=== PATIENT | male | born 1935 | race Caucasian/White ===

== ENCOUNTER → 2016-09-22 | Outpatient (CLI) | payer MEDICARE ==
[~2016-09-22] MED LIST: CELE40TA PO; FLOM5CAP PO; LISI40TAB PO; PROA1AER INH; SING10TA32 PO; TYLE325T5 PO; VITA100037 PO; VITA500T3 PO
[2016-09-22 09:25] LABS: MEAN CORPUSCULAR HEMOGLOBIN 28.5 pg (27.0-33.0); MEAN CORPUSCULAR HGB CONC 33.9 g/dl (32.0-36.5); MEAN CORPUSCULAR VOLUME 83.9 fl (80.0-96.0); RETIC HEMOGLOBIN CONTENT CHr 30.8 PG (24-36); RETICULOCYTE % ADVIA2120 1.8 % (0.5-1.5)
[2016-09-22 09:37] LABS: ALBUMIN 3.4 GM/DL (3.2-5.2); ALBUMIN/GLOBULIN RATIO 1.42 (1.00-1.93); ALKALINE PHOSPHATASE 87 U/L (45-117); ALT/SGPT 17 U/L (12-78); ANION GAP 4 MEQ/L (8-16); AST/SGOT 12 U/L (15-37); BILIRUBIN,TOTAL 0.4 MG/DL (0.2-1.0); BLOOD UREA NITROGEN 23 MG/DL (7-18); CALCIUM LEVEL 8.7 MG/DL (8.8-10.2); CARBON DIOXIDE LEVEL 29 MEQ/L (21-32); CHLORIDE LEVEL 107 MEQ/L (98-107); CREATININE FOR GFR 0.98 MG/DL (0.70-1.30); FERRITIN 48 NG/ML (26-388); GLOMERULAR FILTRATION RATE > 60.0 (>42); GLUCOSE, FASTING 87 MG/DL (83-110); PERCENT SATURATION 18.9 % (19.7-37.4); POTASSIUM SERUM 4.3 MEQ/L (3.5-5.1); SODIUM LEVEL 140 MEQ/L (136-145); TOTAL IRON BINDING CAPACITY 259 UG/DL (250-450); TOTAL PROTEIN 5.8 GM/DL (6.4-8.2)
== END ==
LOC: M LAB 08:23
PROVIDERS: ATTEND Nurse Practitioner Family
DX: D64.9 Anemia, unspecified (principal); I10 Essential (primary) hypertension

== ENCOUNTER → 2016-10-21 | Outpatient (CLI) | payer MEDICARE ==
[~2016-10-21] MED LIST changes: -PROA1AER INH; +PROAAER10 INH; -VITA100037 PO; +VITA100067 PO
--- NOTE | 2016-10-21 14:47 | REP ---
LEFT SHOULDER: Three views of the left shoulder are performed. There is no acute fracture or dislocation. There is mild narrowing at the glenohumeral joint. There is moderate narrowing and mild spurring at the acromioclavicular joint. IMPRESSION: Degenerative changes. Further evaluation may be made with MRI if clinically indicated. Signed by Nghia Glynn MD 10/21/2016 05:25 P
== END ==
LOC: M RAD 13:11
PROVIDERS: ATTEND Family Medicine
DX: M19.012 Primary osteoarthritis, left shoulder (principal)

== ENCOUNTER 2017-03-07 15:31 | Emergency (ER) | payer MEDICARE ==
[~2017-03-07] VITALS: Ht 172.7 cm; Wt 81.8 kg
[2017-03-07] MEDS ORDERED: LISI-538 PO ×2 (15:42→19:13)
[2017-03-07] MEDS ORDERED: IPRATROPIUM 0.5MG/ALBUTEROL 2.5MG INH SOL UD 3ML (DUONEB)(J7620) NEB ONE (16:15)
[2017-03-07 16:49] LABS: BASO # 0.1 10^3/uL (0.0-0.2); BASO % 0.7 % (0.0-1.0); EOS # 0.2 10^3/uL (0.0-0.50); EOS % 2.7 % (0.0-3.0); IMMATURE GRANULOCYTE % 0.4 % (0-0); LYMPH # 1.4 10^3/uL (1.5-4.5); LYMPH % 20.1 % (24.0-44.0); MEAN CORPUSCULAR HGB CONC 32.8 g/dl (32.0-36.5); MEAN CORPUSCULAR VOLUME 82.5 fl (80.0-96.0); MONO # 0.5 10^3/uL (0.0-0.8); MONO % 7.2 % (0.0-5.0); NEUTROPHILS # 4.9 10^3/uL (1.8-7.7); NEUTROPHILS % 68.9 % (36.0-66.0); PLATELET COUNT, AUTOMATED 285 10^3/uL (150-450); RED CELL DISTRIBUTION WIDTH 14.3 % (11.5-14.5); WHITE BLOOD COUNT 7.1 10^3/uL (4.0-10.0)
--- NOTE | 2017-03-07 16:56 | REP ---
Chest two views HISTORY: Cough Comparison: 01/31/2016 A minimal increase in interstitial markings is present in the lungs consistent with chronic interstitial fibrosis. Patchy density is present in the left lower lobe consistent with atelectasis or infiltrate. Small bilateral pleural effusions are present. The heart is upper limits of normal in size. The pulmonary vasculature is normal in appearance. The bony structure is intact. Impression: 1. Chronic interstitial fibrosis. 2. Left lower lobe atelectasis or infiltrate. 3. Small bilateral pleural effusions. Signed by Ehsan Poe MD 03/07/2017 04:47 P
[2017-03-07 17:06] LABS: ALBUMIN/GLOBULIN RATIO 1.36 (1.00-1.93); ALKALINE PHOSPHATASE 71 U/L (45-117); ALT/SGPT 15 U/L (12-78); ANION GAP 9 MEQ/L (8-16); AST/SGOT 11 U/L (7-37); BILIRUBIN,DIRECT < 0.1 MG/DL (0.0-0.2); BILIRUBIN,TOTAL 0.2 MG/DL (0.2-1.0); BLOOD UREA NITROGEN 37 MG/DL (7-18); CALCIUM LEVEL 8.1 MG/DL (8.8-10.2); CARBON DIOXIDE LEVEL 25 MEQ/L (21-32); CHLORIDE LEVEL 109 MEQ/L (98-107); CREATININE FOR GFR 1.74 MG/DL (0.70-1.30); GLOMERULAR FILTRATION RATE 40.5 (>42); GLUCOSE, FASTING 85 MG/DL (83-110); POTASSIUM SERUM 4.3 MEQ/L (3.5-5.1); SODIUM LEVEL 143 MEQ/L (136-145); TOTAL PROTEIN 5.2 GM/DL (6.4-8.2)
[2017-03-07] MEDS ORDERED: NITROGLYCERIN 0.3 MG SUBL TAB SL STA (17:39)
[2017-03-07] MEDS ORDERED: FUROSEMIDE 40 MG/4 ML VIAL (J1940) IV ONE (17:45)
[2017-03-07 17:51] VITALS: BP 207/94
[2017-03-07] MEDS ORDERED: NORV5TAB PO (19:13)
[2017-03-07 19:22] VITALS: BP 188/87
[2017-03-07] MEDS ORDERED: ZITHTAB PO (19:30)
--- NOTE | 2017-03-08 12:27 | ECGEPIP ---
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
== END 2017-03-07 19:35 | disposition home or self-care (01) ==
LOC: M ED 15:31
DX: R06.02 Shortness of breath (principal); I10 Essential (primary) hypertension; N17.9 Acute kidney failure, unspecified; J45.909 Unspecified asthma, uncomplicated; D64.9 Anemia, unspecified; F41.9 Anxiety disorder, unspecified; F33.9 Major depressive disorder, recurrent, unspecified; K58.9 Irritable bowel syndrome, unspecified; Z87.891 Personal history of nicotine dependence

== ENCOUNTER 2017-03-10 08:41 | Inpatient (IN) | payer MEDICARE ==
[~2017-03-10] VITALS: Ht 172.7 cm; Wt 73.8 kg
[~2017-03-10 08:41] MED LIST changes: +LISI-538 PO; +NORV5TAB PO; +ZITHTAB PO
[2017-03-10] MEDS ORDERED: LISI-538 (08:58)
[2017-03-10 10:12] LABS: BASO % 0.5 % (0.0-1.0); EOS # 0.3 10^3/uL (0.0-0.50); EOS % 3.4 % (0.0-3.0); IMMATURE GRANULOCYTE % 0.6 % (0-0); LYMPH # 1.5 10^3/uL (1.5-4.5); LYMPH % 17.4 % (24.0-44.0); MEAN CORPUSCULAR HEMOGLOBIN 26.6 pg (27.0-33.0); MEAN CORPUSCULAR HGB CONC 32.3 g/dl (32.0-36.5); MEAN CORPUSCULAR VOLUME 82.4 fl (80.0-96.0); MONO # 0.4 10^3/uL (0.0-0.8); MONO % 4.9 % (0.0-5.0); NEUTROPHILS # 6.3 10^3/uL (1.8-7.7); NEUTROPHILS % 73.2 % (36.0-66.0); PLATELET COUNT, AUTOMATED 326 10^3/uL (150-450); RED CELL DISTRIBUTION WIDTH 14.2 % (11.5-14.5); WHITE BLOOD COUNT 8.5 10^3/uL (4.0-10.0)
[2017-03-10 10:57] LABS: ALBUMIN 3.1 GM/DL (3.2-5.2); ALBUMIN/GLOBULIN RATIO 1.41 (1.00-1.93); ALKALINE PHOSPHATASE 69 U/L (45-117); ALT/SGPT 18 U/L (12-78); ANION GAP 8 MEQ/L (8-16); AST/SGOT 20 U/L (7-37); BILIRUBIN,DIRECT < 0.1 MG/DL (0.0-0.2); BILIRUBIN,TOTAL 0.4 MG/DL (0.2-1.0); BLOOD UREA NITROGEN 26 MG/DL (7-18); CALCIUM LEVEL 8.4 MG/DL (8.8-10.2); CARBON DIOXIDE LEVEL 26 MEQ/L (21-32); CHLORIDE LEVEL 108 MEQ/L (98-107); CREATININE FOR GFR 1.66 MG/DL (0.70-1.30); GLOMERULAR FILTRATION RATE 42.8 (>42); GLUCOSE, FASTING 89 MG/DL (83-110); POTASSIUM SERUM 4.2 MEQ/L (3.5-5.1); SODIUM LEVEL 142 MEQ/L (136-145); TOTAL PROTEIN 5.3 GM/DL (6.4-8.2)
--- NOTE | 2017-03-10 11:10 | REP ---
CHEST, PORTABLE: Single AP portable view of the chest is performed and compared to a prior study of 03/07/2017. There is mild cardiomegaly. There are mild bibasilar interstitial infiltrates. No consolidation is seen. There is mild ectasia and tortuosity of the thoracic aorta. The mediastinal silhouette is unchanged. IMPRESSION: Mild cardiomegaly. Mild bibasilar interstitial infiltrates. Signed by Nghia Glynn MD 03/12/2017 08:54 A
[2017-03-10] MEDS ORDERED: FUROSEMIDE 40 MG/4 ML VIAL (J1940) IV ONE (11:15)
[2017-03-10 11:21] LABS: PERCENT SATURATION 12.4 % (19.7-50.0)
[2017-03-10 11:29] LABS: FOLATE 11.1 NG/ML (>5.4)
[2017-03-10] MEDS ORDERED: METOPROLOL TART 50 MG TAB PO ONE (12:45)
[2017-03-10] MEDS ORDERED: AZIT250T8 PO (13:23)
[2017-03-10] MEDS ORDERED: AMLO5TAB2 PO (13:23)
[2017-03-10] MEDS ORDERED: ACETAMINOPHEN TAB 650MG DOSE (2X325MG) PO PRN (13:45)
--- NOTE | 2017-03-10 14:10 | HPE ---
DATE OF ADMISSION: 03/10/2017 The patient's history and physical is generated through [employer] electronic record.
[2017-03-10 14:24] LABS: MAGNESIUM LEVEL 1.9 MG/DL (1.8-2.4)
[2017-03-10 15:10] VITALS: BP 200/80
[2017-03-10] MEDS: CitaloPRAM (CeleXA) 20 MG TAB PO SCH (16:30)
[2017-03-10] MEDS: ENOXAPARIN 30 MG/0.3 ML SYR (J1650) SC SCH (16:30)
[2017-03-10] MEDS: METOPROLOL SUCC *XL* 25MG TAB (TopROL *XL*) PO SCH (16:30)
[2017-03-10] MEDS: FUROSEMIDE 40 MG/4 ML VIAL (J1940) IV SCH (18:36)
[2017-03-10 18:39] VITALS: BP 190/84
--- NOTE | 2017-03-10 19:25 | ECGEPIP ---
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
[2017-03-10 20:00] VITALS: BP 130/60
[2017-03-10] MEDS: CYANOCOBALAMIN 500 MCG TAB PO SCH (20:11)
[2017-03-10] MEDS: VITAMIN D 1,000 INTERNATIONAL UNITS TABLET PO SCH (20:11)
[2017-03-10] MEDS: MONTELUKAST 10 MG TAB PO SCH (20:11)
[2017-03-10] MEDS: NITROGLYCERIN 2% OINT 1 GM *U/D* PKT TOP SCH (21:00)
[2017-03-10] MEDS: amLODIPine 5 MG TAB PO SCH (21:13)
[2017-03-10 23:59] VITALS: BP 158/62
[2017-03-11] MEDS: FUROSEMIDE 40 MG/4 ML VIAL (J1940) IV SCH ×4 (01:07→18:25)
[2017-03-11] MEDS: NITROGLYCERIN 2% OINT 1 GM *U/D* PKT TOP SCH ×5 (03:15→21:32)
[2017-03-11 04:00] VITALS: BP 176/81
[2017-03-11 04:10] LABS: MEAN CORPUSCULAR HEMOGLOBIN 26.3 pg (27.0-33.0); MEAN CORPUSCULAR HGB CONC 32.3 g/dl (32.0-36.5); MEAN CORPUSCULAR VOLUME 81.6 fl (80.0-96.0); PLATELET COUNT, AUTOMATED 316 10^3/uL (150-450); RED CELL DISTRIBUTION WIDTH 14.3 % (11.5-14.5); WHITE BLOOD COUNT 8.2 10^3/uL (4.0-10.0)
[2017-03-11 04:29] LABS: CALCIUM LEVEL 8.2 MG/DL (8.8-10.2); CREATININE FOR GFR 1.81 MG/DL (0.70-1.30); GLOMERULAR FILTRATION RATE 38.7 (>42); MAGNESIUM LEVEL 1.8 MG/DL (1.8-2.4); POTASSIUM SERUM 3.7 MEQ/L (3.5-5.1)
[2017-03-11 08:00] VITALS: BP 181/79
--- NOTE | 2017-03-11 09:02 | IPNPDOC ---
Subjective Date Seen The patient was seen on 03/11/17. Subjective Chief Complaint/HPI The patient is a 81-year-old male admitted with a reason for visit of Congestive Heart. Events since last encounter Pt this morning without new concerns. He has a sitter d/t confusion. He denies any symptoms this morning, he isn't sure why he is here. ENT: Denies: Head Aches Pulmonary: Denies: Dyspnea, Cough Cardiovascular: Denies: Chest Pain, Palpitations Gastrointestinal: Denies: Nausea, Vomiting, Diarrhea Psych: Reports: Memory Issues Objective Physical Examination General Exam: Positive: Alert, Cooperative, No Acute Distress Neck Exam: Positive: Supple Chest Exam: Positive: Clear to auscultation, Diminished Heart Exam: Positive: Rate Normal, Normal S1, Normal S2 Abdomen Exam: Positive: Normal bowel sounds, Soft, Negative: Tenderness Extremity Exam: Positive: Edema (2 mm pitting BLE) Psych Exam: Positive: Mood NL Assessment /Plan Problems (1) Congestive heart failure with preserved left ventricular function, NYHA class 3 Status: Acute Response to Treatment: Stable Discussed With: Patient Problem Specific Plan: Monitor Clinically Problem Text: Admitted on IV Lasix 40 mg q6h. I & Os not accurate at this point, should see some improvement today. resp status stable today. AKASH diet. Cons Cardiac rehab consult. (2) Iron deficiency anemia Status: Chronic Problem Text: Baseline Hgb 12-13, he is down from 10 to 9 today, monitor closely (3) Dementia Status: Chronic Response to Treatment: Stable Problem Specific Plan: Monitor Clinically Problem Text: Unsure what his baseline is this morning, but he is clearly confused this morning. Cont to monitor. Cont with sitter. (4) Acute on chronic renal failure Status: Acute Response to Treatment: Stable Problem Specific Plan: Monitor Clinically, Repeat Labs Problem Text: Monitor, baseline Scr 1.0. May improve with diuresis. Plan/VTE VTE Prophylaxis Ordered?: Yes VS, I&O, 24H, Fishbone Vital Signs/I&O Vital Signs Date Time Temp Pulse Resp B/P (MAP) Pulse Ox O2 Delivery O2 Flow Rate FiO2 03/11/17 08:00 98.0 71 19 181/79 (113) 92 Room Air 03/10/17 20:00 2.0 I&O- Last 24 Hours up to 6 AM 03/12/17 06:00 Output Total 100 ml Balance -100 ml Laboratory Data 24H LABS Laboratory Tests 2 03/10/17 10:01: Magnesium Level 1.9, Iron Level 26L, Total Iron Binding Capacity 210L, Transferrin % Saturation 12.4L, Ferritin 42, Vitamin B12 Level 510, Folate 11.1 03/10/17 10:02: Immature Granulocyte % (Auto) 0.6H, White Blood Count 8.5, Red Blood Count 3.76L , Hemoglobin 10.0L, Hematocrit 31.0L, Mean Corpuscular Volume 82.4, Mean Corpuscular Hemoglobin 26.6L, Mean Corpuscular Hemoglobin Concent 32.3, Red Cell Distribution Width 14.2, Platelet Count 326, Neutrophils (%) (Auto) 73.2H, Lymphocytes (%) (Auto) 17.4L, Monocytes (%) (Auto) 4.9, Eosinophils (%) (Auto) 3.4H, Basophils (%) (Auto) 0.5, Neutrophils # (Auto) 6.3, Lymphocytes # (Auto) 1.5, Monocytes # (Auto) 0.4, Eosinophils # (Auto) 0.3, Basophils # (Auto) 0.0, Immature Granulocyte # (Auto) 0.1H, Nucleated Red Blood Cells % (auto) 0.0, Anion Gap 8, Glomerular Filtration Rate 42.8, Calcium Level 8.4L, Aspartate Amino Transf (AST/SGOT) 20, Alanine Aminotransferase (ALT/SGPT) 18, Alkaline Phosphatase 69, Total Bilirubin 0.4#, Direct Bilirubin < 0.1, Total Creatine Kinase 216, Creatine Kinase MB 3.8H, Creatine Kinase MB Relative Index 1.75, Troponin I 0.03, NX-Puv-[id number]-Type Natriuretic Peptide 3247H, Total Protein 5.3L, Albumin 3.1L, Albumin/Globulin Ratio 1.41, Thyroid Stimulating Hormone (TSH) 2.910 03/10/17 19:38: Total Creatine Kinase 242, Creatine Kinase MB 3.6, Creatine Kinase MB Relative Index 1.48, Troponin I 0.04# 03/11/17 03:31: Magnesium Level 1.8, Nucleated Red Blood Cells % (auto) 0.0, Anion Gap 11, Glomerular Filtration Rate 38.7L, Calcium Level 8.2L, Total Creatine Kinase 202 , Creatine Kinase MB 3.2, Creatine Kinase MB Relative Index 1.58, Troponin I 0.03#, Blood Urea Nitrogen 28H, Creatinine 1.81H, Sodium Level 143, Potassium Level 3.7, Chloride Level 107, Carbon Dioxide Level 25 CBC/BMP Laboratory Tests 03/10/17 10:02 Red Blood Count 3.76 L, Mean Corpuscular Volume 82.4, Mean Corpuscular Hemoglobin 26.6 L, Mean Corpuscular Hemoglobin Concent 32.3, Red Cell Distribution Width 14.2, Neutrophils (%) (Auto) 73.2 H, Lymphocytes (%) (Auto) 17.4 L, Monocytes (%) (Auto) 4.9, Eosinophils (%) (Auto) 3.4 H, Basophils (%) ( Auto) 0.5, Neutrophils # (Auto) 6.3, Lymphocytes # (Auto) 1.5, Monocytes # (Auto ) 0.4, Eosinophils # (Auto) 0.3, Basophils # (Auto) 0.0 03/11/17 03:31 Red Blood Count 3.42 L, Mean Corpuscular Volume 81.6, Mean Corpuscular Hemoglobin 26.3 L, Mean Corpuscular Hemoglobin Concent 32.3, Red Cell Distribution Width 14.3, Calcium Level 8.2 L, Total Creatine Kinase 202 ABHIJEET XIE PA-C Mar 11, 2017 09:02
[2017-03-11] MEDS: ENOXAPARIN 30 MG/0.3 ML SYR (J1650) SC SCH (09:37)
[2017-03-11] MEDS: CitaloPRAM (CeleXA) 20 MG TAB PO SCH (09:37)
[2017-03-11] MEDS: METOPROLOL SUCC *XL* 25MG TAB (TopROL *XL*) PO SCH (09:39)
[2017-03-11] MEDS: amLODIPine 5 MG TAB PO SCH ×3 (09:39→21:31)
[2017-03-11 12:00] VITALS: BP 172/79
[2017-03-11 20:00] VITALS: BP 177/81
[2017-03-11] MEDS: VITAMIN D 1,000 INTERNATIONAL UNITS TABLET PO SCH ×2 (21:00→21:31)
[2017-03-11] MEDS: CYANOCOBALAMIN 500 MCG TAB PO SCH ×2 (21:00→21:31)
[2017-03-11] MEDS: MONTELUKAST 10 MG TAB PO SCH ×2 (21:00→21:31)
[2017-03-11 23:59] VITALS: BP 170/72
[2017-03-12] MEDS: FUROSEMIDE 40 MG/4 ML VIAL (J1940) IV SCH ×2 (00:52→06:00)
[2017-03-12 04:00] VITALS: BP 178/72
[2017-03-12] MEDS: NITROGLYCERIN 2% OINT 1 GM *U/D* PKT TOP SCH ×4 (04:39→21:06)
[2017-03-12 06:04] LABS: MEAN CORPUSCULAR HEMOGLOBIN 26.1 pg (27.0-33.0); MEAN CORPUSCULAR HGB CONC 32.6 g/dl (32.0-36.5); MEAN CORPUSCULAR VOLUME 79.8 fl (80.0-96.0); PLATELET COUNT, AUTOMATED 304 10^3/uL (150-450); RED CELL DISTRIBUTION WIDTH 13.9 % (11.5-14.5); WHITE BLOOD COUNT 7.7 10^3/uL (4.0-10.0)
--- NOTE | 2017-03-12 06:12 | ECHO ---
DATE OF STUDY: 03/10/2017 REFERRING PHYSICIAN: Dr. Hector Conner INDICATION: Dyspnea. HEIGHT: 173 cm. WEIGHT: 80 kg. 2-D MEASUREMENTS: Aortic root: 3.7 cm Left atrium: 4.0 cm Left ventricle septum: 1.14 cm Posterior wall: 1.09 cm Left ventricle diastole: 5.8 cm LVOT: 2.5 cm DOPPLER MEASUREMENTS: Moderate aortic regurgitation Aortic valve velocity: 164 cm/sec LVOT velocity: 92.5 cm/sec LVOT VTI: 21.5 cm Moderate mitral regurgitation Mitral E velocity: 66.1 cm/sec Mitral A velocity: 83.9 cm/sec Mitral deceleration time: 222 ms Estimated right ventricular systolic pressure 31 mmHg assuming a right atrial pressure of 5 mmHg Pulmonary artery systolic pressure: 22 mmHg by pulmonary acceleration time method MITRAL ANNULAR TISSUE DOPPLER: E prime septal: 5.1 cm/sec E prime lateral: 6.4 cm/sec DESCRIPTION: The rhythm was sinus. This was a moderately technically difficult echocardiogram. This was a 2-D, M-mode, color flow Doppler and pulse wave Doppler examination and included mitral annular tissue Doppler. CONCLUSIONS: 1. Normal left ventricle regional wall motion and LV systolic function. LVEF 60% by visual estimate. Mildly dilated left ventricle at end diastole. Grade 1 LV diastolic dysfunction (impaired relaxation filling pattern). 2. Mild aortic valve sclerosis of a 3-cuspid aortic valve. Moderate aortic regurgitation. 3. Moderate mitral annular calcification. No mitral stenosis. Moderate mitral regurgitation. 4. Suggestive of normal estimated right ventricle systolic pressure and pulmonary artery systolic pressure. 5. Tiny pericardial effusion. RECOMMENDATIONS: Suggest a follow up echocardiogram Doppler in one year.
[2017-03-12 06:22] LABS: CALCIUM LEVEL 8.1 MG/DL (8.8-10.2); CREATININE FOR GFR 1.93 MG/DL (0.70-1.30); GLOMERULAR FILTRATION RATE 35.9 (>42); POTASSIUM SERUM 3.3 MEQ/L (3.5-5.1)
[2017-03-12 08:00] VITALS: BP 197/79
[2017-03-12] MEDS: ENOXAPARIN 30 MG/0.3 ML SYR (J1650) SC SCH (09:00)
--- NOTE | 2017-03-12 09:13 | IPNPDOC ---
Subjective Date Seen The patient was seen on 03/12/17. Subjective Chief Complaint/HPI The patient is a 81-year-old male admitted with a reason for visit of Congestive Heart. Objective Physical Examination General Exam: Positive: Alert, Cooperative, No Acute Distress Neck Exam: Positive: Supple Chest Exam: Positive: Clear to auscultation, Diminished Heart Exam: Positive: Rate Normal, Normal S1, Normal S2 Abdomen Exam: Positive: Normal bowel sounds, Soft, Negative: Tenderness Extremity Exam: Positive: Edema (2 mm pitting BLE) Psych Exam: Positive: Mood NL, Other (disoriented to time: may 1986. ), Negative: Oriented x 3 Assessment /Plan Problems (1) Congestive heart failure with preserved left ventricular function, NYHA class 3 Permanent Comment: echo 03/10/2017: CONCLUSIONS: 1. Normal left ventricle regional wall motion and LV systolic function. LVEF 60% by visual estimate. Mildly dilated left ventricle at end diastole. Grade 1 LV diastolic dysfunction (impaired relaxation filling pattern). 2. Mild aortic valve sclerosis of a 3-cuspid aortic valve. Moderate aortic regurgitation. 3. Moderate mitral annular calcification. No mitral stenosis. Moderate mitral regurgitation. 4. Suggestive of normal estimated right ventricle systolic pressure and pulmonary artery systolic pressure. 5. Tiny pericardial effusion. Last Edited By: Fanta Ravi NP on Mar 12, 2017 09:07 Status: Acute Response to Treatment: Stable Discussed With: Patient Problem Specific Plan: Monitor Clinically Problem Text: 03/13/17: Changed to Lasix 40 mg po bid. Monitor renal function with diuretic. potential for DC home in am. Admitted on IV Lasix 40 mg q6h. I & Os not accurate at this point, should see some improvement today. resp status stable today. AKASH diet. Cons Cardiac rehab consult. (2) Iron deficiency anemia Status: Chronic Problem Text: Baseline Hgb 12-13, he is down from 10 to 9 today, monitor closely (3) Dementia Status: Chronic Response to Treatment: Stable Problem Specific Plan: Monitor Clinically Problem Text: 03/12/17: alert to self and place. Unsure what his baseline is this morning, but he is clearly confused this morning. Cont to monitor. Cont with sitter. (4) Acute on chronic renal failure Status: Acute Response to Treatment: Stable Problem Specific Plan: Monitor Clinically, Repeat Labs Problem Text: Monitor, baseline Scr 1.0. May improve with diuresis. Plan/VTE VTE Prophylaxis Ordered?: Yes VS, I&O, 24H, Fishbone Vital Signs/I&O Vital Signs Date Time Temp Pulse Resp B/P (MAP) Pulse Ox O2 Delivery O2 Flow Rate FiO2 03/12/17 08:00 99.1 79 20 197/79 (118) 94 Room Air 03/10/17 20:00 2.0 I&O- Last 24 Hours up to 6 AM 03/13/17 06:00 Intake Total 0 ml Output Total 0 ml Balance 0 ml Laboratory Data 24H LABS Laboratory Tests 2 03/11/17 10:59: Total Creatine Kinase 237, Creatine Kinase MB 3.4, Creatine Kinase MB Relative Index 1.43, Troponin I 0.03 03/12/17 05:52: Nucleated Red Blood Cells % (auto) 0.0, Anion Gap 11, Glomerular Filtration Rate 35.9L, Blood Urea Nitrogen 33H, Creatinine 1.93H, Sodium Level 142, Potassium Level 3.3L, Chloride Level 101, Carbon Dioxide Level 30, Calcium Level 8.1L CBC/BMP Laboratory Tests 03/12/17 05:52 Red Blood Count 3.57 L, Mean Corpuscular Volume 79.8 L, Mean Corpuscular Hemoglobin 26.1 L, Mean Corpuscular Hemoglobin Concent 32.6, Red Cell Distribution Width 13.9, Calcium Level 8.1 L Fanta Ravi [employer] DECORATOR Mar 12, 2017 09:13
[2017-03-12] MEDS: METOPROLOL SUCC *XL* 25MG TAB (TopROL *XL*) PO SCH (09:33)
[2017-03-12] MEDS: amLODIPine 5 MG TAB PO SCH ×2 (09:33→21:06)
[2017-03-12] MEDS: CitaloPRAM (CeleXA) 20 MG TAB PO SCH (09:34)
[2017-03-12] MEDS ORDERED: POTASSIUM CHLORIDE 10 MEQ SR TABLET PO ONE (10:00)
[2017-03-12 11:01] LABS: YEAST LIKE CELL URINE AUTO SMALL
[2017-03-12 12:00] VITALS: BP 150/69
--- NOTE | 2017-03-12 15:56 | REP ---
CT of the abdomen pelvis without IV or bowel contrast: There are no comparisons. There is a small right pleural effusion within the visualized lung nolasco. The unenhanced hepatic parenchyma, gallbladder, pancreas and spleen are unremarkable. There is a small hiatal hernia. There is a small pericardial effusion measuring 1 cm in depth anteriorly. The adrenals are unremarkable. There is no hydronephrosis. There are no renal, ureteral or bladder calculi. The prostate is enlarged and contains prostatic of this and effaces the bladder base. There is no bowel distension or obstruction. There is diverticulosis of the descending colon and sigmoid colon without diverticulitis. There are a few scattered diverticula in the ascending colon and transverse colon without diverticulitis. Pelvis: The appendix is unremarkable. The bladder is unremarkable except for effacement is based from the prostate. There is no adenopathy or ascites. There is multilevel degenerative disc disease in the lumbar spine. There is a mottled lucent lesion involving the anterior posterior elements of the L4 vertebral body. This could be an hemangioma, focal osteoporosis or neoplasm. There is focal hypodensity posteriorly in the left iliac wing, greater than that on the right, nonspecific, focal osteoporosis versus lytic lesion. There is a focal hypodensity anteriorly in the left iliac wing, bone island versus blastic lesion. Impression: Small right pleural effusion. Small hiatal hernia. Small pericardial effusion. The prostate is markedly enlarged and effaces the bladder base. There are prostatic of this. There are no renal or ureteral calculi. There is no hydronephrosis. There are skeletal lesions as described. These are nonspecific. Signed by Nghia Amezcua MD 03/12/2017 03:47 P
[2017-03-12 16:00] VITALS: BP 168/70
[2017-03-12] MEDS ORDERED: FUROSEMIDE 40 MG TAB PO SCH (17:00)
[2017-03-12 20:00] VITALS: BP_SYST 153; BP_SYST 182; BP_DIAS 69
[2017-03-12] MEDS: VITAMIN D 1,000 INTERNATIONAL UNITS TABLET PO SCH (21:06)
[2017-03-12] MEDS: CYANOCOBALAMIN 500 MCG TAB PO SCH (21:06)
[2017-03-12] MEDS: MONTELUKAST 10 MG TAB PO SCH (21:06)
[2017-03-12 23:59] VITALS: BP 162/71
[2017-03-13 04:45] VITALS: BP 157/74
[2017-03-13 05:00] VITALS: BP 157/74
[2017-03-13] MEDS: NITROGLYCERIN 2% OINT 1 GM *U/D* PKT TOP SCH (05:00)
[2017-03-13 06:06] LABS: MEAN CORPUSCULAR HEMOGLOBIN 26.5 pg (27.0-33.0); MEAN CORPUSCULAR HGB CONC 32.6 g/dl (32.0-36.5); MEAN CORPUSCULAR VOLUME 81.1 fl (80.0-96.0); PLATELET COUNT, AUTOMATED 336 10^3/uL (150-450); WHITE BLOOD COUNT 8.7 10^3/uL (4.0-10.0)
[2017-03-13 06:36] LABS: CALCIUM LEVEL 7.8 MG/DL (8.8-10.2); CREATININE FOR GFR 1.81 MG/DL (0.70-1.30); GLOMERULAR FILTRATION RATE 38.7 (>42); POTASSIUM SERUM 3.9 MEQ/L (3.5-5.1)
[2017-03-13] MEDS ORDERED: FINA5TAB2 PO (08:33)
[2017-03-13] MEDS ORDERED: FLOM5CAP PO (08:33)
[2017-03-13] MEDS ORDERED: METO1TAB32 PO (08:33)
[2017-03-13 08:50] VITALS: BP 139/63
--- NOTE | 2017-03-13 09:22 | DSES ---
DATE OF ADMISSION: 03/10/2017 DATE OF DISCHARGE: PRIMARY CARE PROVIDER: [facility] PRINCIPAL DIAGNOSIS: Exacerbation of congestive heart failure with preserved ejection fraction. SECONDARY DIAGNOSES: 1. Hematuria secondary to benign prostatic hypertrophy (BPH). 2. Chronic anemia secondary to chronic disease. 3. Chronic kidney disease stage III. 4. Dementia. 5. Question of lytic lesions L4 and left iliac wing on CT scan abdomen and pelvis. Outpatient followup planned. 6. Benign prostatic hypertrophy with urinary tract symptoms of a significant obstruction. HISTORY: Anthony Hammond is a 81-year-old patient of Joyce Decker admitted with CHF. Details in history and physical for admission. HOSPITAL COURSE: The patient was admitted to a progressive care unit (PCU) bed. He was diuresed and within a day or two was out of his congestive heart failure. He could have gone home yesterday, but he had developed gross hematuria. It was intermittent, and it has resolved. He strains to void and has nocturia times 5-6. Voids small amounts frequently during his hospitalization. Due to the hematuria, we did a urinalysis, which confirmed gross hematuria. Urine culture shows no growth today, and a CT scan abdomen and pelvis showed no abnormalities of the kidneys. He did have a mottled lucent lesion anterior elements of the L4 vertebral body and a focal hypodensity left iliac wing. Significant disease is unknown. (I have a call in for Dr. Amezcua, the radiologist, to call me back to see whether he would recommend followup bone scan versus plain film imaging. Both or either of these can be done as an outpatient, and I will dictate an addendum once I hear back from him.) He has significant obstructive urinary symptoms. This was evident in the emergency room, where despite diuretic he was only voiding a few hundred mL at a time but doing it about every 20 minutes. His says he has a slow stream and nocturia times 5-6. Will start medical therapy towards this with Flomax 0.4 mg at bedtime and finasteride 5 mg daily. He has dementia. He is on citalopram 40 mg daily. He did well with that. During his hospitalization, he had some confusion due to change of his location. Acute renal failure superimposed on chronic kidney disease. Some of this was from excessive diuresis. We did hold his lisinopril on admission. His blood pressure was treated with metoprolol succinate 25 mg daily and amlodipine 5 mg daily, which he is tolerating well. He had an echocardiogram done. It showed left atrial enlargement 40 mm, ejection fraction 60%, grade 1 diastolic dysfunction (appropriate for age), aortic regurgitation, moderate mitral regurgitation. Repeat echocardiogram recommended in a year. SIGNIFICANT LABORATORIES: Today, sodium was 143, potassium 3.9, BUN 34, creatinine 1.8, glucose 94. White count is 8.7, hemoglobin 9.4, platelets 336. Urinalysis shows too many red cells to count. Urine culture is pending. At this point, no growth. Chest x-ray showed increased interstitial markings. CT scan abdomen and pelvis is summarized above. DISPOSITION: The patient is discharged improved in stable condition. He will followup with Joyce Decker in 1 week. He will need followup imaging for the radiographic abnormalities described above, followup laboratory work for the chronic anemia and chronic kidney disease. [id number] diet. 1800 mL per day fluid restriction. MEDICATIONS ON DISCHARGE: Are: - amlodipine 5 mg daily - citalopram 40 mg daily - vitamin B12 500 mcg daily - Singulair 10 mg daily - albuterol two puffs every 4 hours as needed for shortness of breath - vitamin D 1000 units daily - metoprolol succinate 25 mg daily HE IS NOT BEING DISCHARGED ON ANY DIURETIC. He is euvolemic at this point but might need reinstitution of a low-dose diuretic as an outpatient. We are initiating treatment for his symptomatic BPH with Flomax 0.4 mg daily and finasteride 5 mg daily.
[2017-03-13] MEDS: CitaloPRAM (CeleXA) 20 MG TAB PO SCH (10:24)
[2017-03-13] MEDS: amLODIPine 5 MG TAB PO SCH (10:24)
[2017-03-13] MEDS: METOPROLOL SUCC *XL* 25MG TAB (TopROL *XL*) PO SCH (10:25)
== END 2017-03-13 11:01 | disposition home or self-care (01) | DRG 291 ==
LOC: M ED 08:41 → M ED INP 13:36 → M PCU 15:11
PROVIDERS: ADMIT Family Medicine; ATTEND Family Medicine
DX: I13.0 Hypertensive heart and chronic kidney disease with heart failure and stage 1 through stage 4 chronic kidney disease, or unspecified chronic kidney disease (principal); I50.33 Acute on chronic diastolic (congestive) heart failure; N17.9 Acute kidney failure, unspecified; I95.1 Orthostatic hypotension; F41.9 Anxiety disorder, unspecified; J45.909 Unspecified asthma, uncomplicated; R31.0 Gross hematuria; N40.1 Benign prostatic hyperplasia with lower urinary tract symptoms; D50.9 Iron deficiency anemia, unspecified; R35.1 Nocturia; R39.198 Other difficulties with micturition; N18.3 Chronic kidney disease, stage 3 (moderate); F03.90 Unspecified dementia, unspecified severity, without behavioral disturbance, psychotic disturbance, mood disturbance, and anxiety; Z87.891 Personal history of nicotine dependence; Z79.899 Other long term (current) drug therapy; Z88.1 Allergy status to other antibiotic agents; Z88.8 Allergy status to other drugs, medicaments and biological substances

== ENCOUNTER → 2017-03-19 | Outpatient (REF) | payer MEDICARE ==
[~2017-03-19] MED LIST changes: +AMLO5TAB2 PO; +AZIT250T8 PO; +FINA5TAB2 PO; +LISI-538; +METO1TAB32 PO
[2017-03-19 12:20] LABS: MEAN CORPUSCULAR HEMOGLOBIN 25.9 pg (27.0-33.0); MEAN CORPUSCULAR VOLUME 80.9 fl (80.0-96.0); PLATELET COUNT, AUTOMATED 338 10^3/uL (150-450); RED CELL DISTRIBUTION WIDTH 13.8 % (11.5-14.5); WHITE BLOOD COUNT 7.6 10^3/uL (4.0-10.0)
[2017-03-19 12:42] LABS: CALCIUM LEVEL 8.6 MG/DL (8.8-10.2); CREATININE FOR GFR 1.53 MG/DL (0.70-1.30); POTASSIUM SERUM 4.5 MEQ/L (3.5-5.1)
== END ==
LOC: M SFHCPLAZ 09:23
PROVIDERS: ATTEND Family Medicine
DX: N17.9 Acute kidney failure, unspecified (principal)

== ENCOUNTER → 2017-03-20 | Outpatient (CLI) | payer MEDICARE ==
--- NOTE | 2017-03-20 11:20 | REP ---
PELVIS: AP view of the pelvis is performed and demonstrates no fracture, dislocation or intrinsic bone disease. IMPRESSION: Negative exam. Signed by Nghia Glynn MD 03/20/2017 08:37 P
--- NOTE | 2017-03-20 11:23 | REP ---
LUMBOSACRAL SPINE: AP and lateral views of the lumbosacral spine performed. There is no compression fracture or malalignment. There is normal lumbar lordosis. There is moderate diffuse spurring. There is moderate disc space narrowing and subchondral sclerosis at L1-2 through L4-5 with vacuum phenomenon at L2-3 and L3-4. The L5-S1 disc space is relatively preserved. There is diffuse sclerosis at the posterior facet joints. The posterior elements are intact. There is mild curvature toward the right. IMPRESSION: Diffuse degenerative changes of a moderate degree. Signed by Nghia Glynn MD 03/20/2017 08:37 P
== END ==
LOC: M RAD 10:17
PROVIDERS: ATTEND Family Medicine
DX: M89.9 Disorder of bone, unspecified (principal)

== ENCOUNTER → 2017-03-28 | Outpatient (REF) | payer MEDICARE ==
[2017-03-28 13:06] LABS: MEAN CORPUSCULAR HEMOGLOBIN 26.4 pg (27.0-33.0); MEAN CORPUSCULAR HGB CONC 31.9 g/dl (32.0-36.5); MEAN CORPUSCULAR VOLUME 82.8 fl (80.0-96.0); PLATELET COUNT, AUTOMATED 324 10^3/uL (150-450); RED CELL DISTRIBUTION WIDTH 14.2 % (11.5-14.5); WHITE BLOOD COUNT 8.9 10^3/uL (4.0-10.0)
[2017-03-28 13:29] LABS: ALBUMIN 3.1 GM/DL (3.2-5.2); ALBUMIN/GLOBULIN RATIO 1.41 (1.00-1.93); ALKALINE PHOSPHATASE 62 U/L (45-117); ALT/SGPT 14 U/L (12-78); ANION GAP 6 MEQ/L (8-16); AST/SGOT 14 U/L (7-37); BILIRUBIN,TOTAL 0.2 MG/DL (0.2-1.0); BLOOD UREA NITROGEN 26 MG/DL (7-18); CALCIUM LEVEL 8.1 MG/DL (8.8-10.2); CARBON DIOXIDE LEVEL 28 MEQ/L (21-32); CHLORIDE LEVEL 110 MEQ/L (98-107); CREATININE FOR GFR 1.53 MG/DL (0.70-1.30); FREE T4 0.77 NG/DL (0.76-1.46); GLUCOSE, FASTING 100 MG/DL (83-110); POTASSIUM SERUM 4.9 MEQ/L (3.5-5.1); SODIUM LEVEL 144 MEQ/L (136-145); TOTAL PROTEIN 5.3 GM/DL (6.4-8.2)
== END ==
LOC: M SFHCPLAZ 09:41
DX: N17.9 Acute kidney failure, unspecified (principal); I10 Essential (primary) hypertension; E04.1 Nontoxic single thyroid nodule
CPT/HCPCS: 84443

== ENCOUNTER → 2017-04-04 | Outpatient (CLI) | payer MEDICARE | LOC: M RAD 09:45 | DX: M89.9 Disorder of bone, unspecified (principal) | CPT/HCPCS: 78306 ==

== ENCOUNTER → 2017-04-29 | Outpatient (CLI) | payer MEDICARE ==
[2017-04-29 14:24] LABS: BLOOD UREA NITROGEN 27 MG/DL (7-18)
[2017-04-29 14:24] LABS: CREATININE FOR GFR 1.55 MG/DL (0.70-1.30); GLOMERULAR FILTRATION RATE 46.2 (>35)
== END ==
LOC: M LAB 13:09
DX: H53.2 Diplopia (principal)
CPT/HCPCS: 82565

== ENCOUNTER → 2017-04-30 | Outpatient (CLI) | payer MEDICARE ==
[~2017-04-30] MED LIST changes: -AMLO5TAB2 PO; -AZIT250T8 PO; -CELE40TA PO; -FINA5TAB2 PO; -FLOM5CAP PO; -LISI-538; -LISI-538 PO; -LISI40TAB PO; -METO1TAB32 PO; -NORV5TAB PO; -PROAAER10 INH; +PROHANCE 279.3MG/ML 5ML VIAL (A9576) As Ordered; -SING10TA32 PO; -TYLE325T5 PO; -VITA100067 PO; -VITA500T3 PO; -ZITHTAB PO
== END ==
LOC: M RAD 11:20
DX: H53.2 Diplopia (principal); R93.0 Abnormal findings on diagnostic imaging of skull and head, not elsewhere classified
CPT/HCPCS: A9576

== ENCOUNTER → 2017-07-10 | Outpatient (CLI) | payer MEDICARE ==
[2017-07-10 10:05] LABS: BASO # 0.1 10^3/uL (0.0-0.2); BASO % 0.6 % (0.0-1.0); EOS # 0.3 10^3/uL (0.0-0.50); EOS % 3.4 % (0.0-3.0); HEMATOCRIT 30.2 % (42.0-52.0); HEMOGLOBIN 9.9 g/dl (13.5-17.5); IMMATURE GRANULOCYTE % 0.4 % (0-3.0); LYMPH # 1.7 10^3/uL (1.5-4.5); MEAN CORPUSCULAR HEMOGLOBIN 26.2 pg (27.0-33.0); MEAN CORPUSCULAR HGB CONC 32.8 g/dl (32.0-36.5); MEAN CORPUSCULAR VOLUME 79.9 fl (80.0-96.0); MONO # 0.3 10^3/uL (0.0-0.8); MONO % 3.7 % (0.0-5.0); NEUTROPHILS % 71.9 % (36.0-66.0); PLATELET COUNT, AUTOMATED 260 10^3/uL (150-450); RED BLOOD COUNT 3.78 10^6/uL (4.30-6.10); RED CELL DISTRIBUTION WIDTH 14.3 % (11.5-14.5); WHITE BLOOD COUNT 8.3 10^3/uL (4.0-10.0)
[2017-07-10 10:38] LABS: ALBUMIN 3.3 GM/DL (3.2-5.2); ALBUMIN/GLOBULIN RATIO 1.22 (1.00-1.93); ALKALINE PHOSPHATASE 73 U/L (45-117); ALT/SGPT 14 U/L (12-78); ANION GAP 7 MEQ/L (8-16); AST/SGOT 11 U/L (7-37); BILIRUBIN,TOTAL 0.3 MG/DL (0.2-1.0); BLOOD UREA NITROGEN 29 MG/DL (7-18); CALCIUM LEVEL 8.8 MG/DL (8.8-10.2); CARBON DIOXIDE LEVEL 27 MEQ/L (21-32); CHLORIDE LEVEL 108 MEQ/L (98-107); CREATININE FOR GFR 1.42 MG/DL (0.70-1.30); GLOMERULAR FILTRATION RATE 51.1 (>35); GLUCOSE, FASTING 105 MG/DL (70-100); POTASSIUM SERUM 3.8 MEQ/L (3.5-5.1); SODIUM LEVEL 142 MEQ/L (136-145)
[2017-07-10 12:15] LABS: TOTAL 25(OH) VITAMIN D 47.4 NG/ML (30.0-100.0)
== END ==
LOC: M LAB 09:37
DX: I11.0 Hypertensive heart disease with heart failure (principal); D63.8 Anemia in other chronic diseases classified elsewhere; E55.9 Vitamin D deficiency, unspecified; I50.9 Heart failure, unspecified
CPT/HCPCS: 80053

== ENCOUNTER → 2017-10-13 | Outpatient (REF) | payer MEDICARE ==
[2017-10-13 11:36] LABS: HEMATOCRIT 32.3 % (42.0-52.0); HEMOGLOBIN 10.4 g/dl (13.5-17.5); MEAN CORPUSCULAR HEMOGLOBIN 26.6 pg (27.0-33.0); MEAN CORPUSCULAR HGB CONC 32.2 g/dl (32.0-36.5); MEAN CORPUSCULAR VOLUME 82.6 fl (80.0-96.0); PLATELET COUNT, AUTOMATED 299 10^3/uL (150-450); RED BLOOD COUNT 3.91 10^6/uL (4.30-6.10); RED CELL DISTRIBUTION WIDTH 14.2 % (11.5-14.5); WHITE BLOOD COUNT 9.4 10^3/uL (4.0-10.0)
[2017-10-13 12:16] LABS: ALBUMIN 3.1 GM/DL (3.2-5.2); ALBUMIN/GLOBULIN RATIO 1.07 (1.00-1.93); ALKALINE PHOSPHATASE 89 U/L (45-117); ALT/SGPT 17 U/L (12-78); ANION GAP 7 MEQ/L (8-16); AST/SGOT 13 U/L (7-37); BILIRUBIN,TOTAL 0.3 MG/DL (0.2-1.0); BLOOD UREA NITROGEN 28 MG/DL (7-18); CALCIUM LEVEL 8.7 MG/DL (8.8-10.2); CARBON DIOXIDE LEVEL 29 MEQ/L (21-32); CHLORIDE LEVEL 107 MEQ/L (98-107); CREATININE FOR GFR 1.37 MG/DL (0.70-1.30); FERRITIN 30 NG/ML (26-388); GLOMERULAR FILTRATION RATE 53.2 (>35); GLUCOSE, FASTING 91 MG/DL (70-100); IRON (FE) 46 UG/DL (65-175); PERCENT SATURATION 18.5 % (19.7-50.0); POTASSIUM SERUM 4.8 MEQ/L (3.5-5.1); SODIUM LEVEL 143 MEQ/L (136-145); TOTAL IRON BINDING CAPACITY 248 UG/DL (250-450)
== END ==
LOC: M SFHCPLAZ 09:49
DX: I11.0 Hypertensive heart disease with heart failure (principal); D63.8 Anemia in other chronic diseases classified elsewhere
CPT/HCPCS: 83550

== ENCOUNTER → 2018-01-30 | Outpatient (REF) | payer MEDICARE ==
[2018-01-30 12:13] LABS: HEMATOCRIT 36.3 % (42.0-52.0); HEMOGLOBIN 11.5 g/dl (13.5-17.5); MEAN CORPUSCULAR HEMOGLOBIN 26.2 pg (27.0-33.0); MEAN CORPUSCULAR HGB CONC 31.7 g/dl (32.0-36.5); MEAN CORPUSCULAR VOLUME 82.7 fl (80.0-96.0); PLATELET COUNT, AUTOMATED 298 10^3/uL (150-450); RED BLOOD COUNT 4.39 10^6/uL (4.30-6.10); WHITE BLOOD COUNT 8.3 10^3/uL (4.0-10.0)
[2018-01-30 12:32] LABS: ALBUMIN 3.8 GM/DL (3.2-5.2); ALBUMIN/GLOBULIN RATIO 1.52 (1.00-1.93); ALKALINE PHOSPHATASE 90 U/L (45-117); ALT/SGPT 16 U/L (12-78); ANION GAP 7 MEQ/L (8-16); AST/SGOT 15 U/L (7-37); BILIRUBIN,TOTAL 0.4 MG/DL (0.2-1.0); BLOOD UREA NITROGEN 26 MG/DL (7-18); CALCIUM LEVEL 9.3 MG/DL (8.8-10.2); CARBON DIOXIDE LEVEL 28 MEQ/L (21-32); CHLORIDE LEVEL 105 MEQ/L (98-107); CHOLESTEROL LEVEL 236 MG/DL (<200); CHOLESTEROL RISK RATIO 4.452 (<5); CREATININE FOR GFR 1.11 MG/DL (0.70-1.30); FERRITIN 26 NG/ML (26-388); GLOMERULAR FILTRATION RATE > 60.0 (>35); GLUCOSE, FASTING 87 MG/DL (70-100); HDL CHOLESTEROL 53 MG/DL (>40); LDL CHOLESTEROL 156 MG/DL (<100); NON-HDL-C 183 MG/DL; POTASSIUM SERUM 4.6 MEQ/L (3.5-5.1); SODIUM LEVEL 140 MEQ/L (136-145); TOTAL PROTEIN 6.3 GM/DL (6.4-8.2); TRIGLYCERIDES LEVEL 133 MG/DL (<150)
[2018-01-30 13:33] LABS: TOTAL 25(OH) VITAMIN D 25.5 NG/ML (30.0-100.0)
== END ==
LOC: M SFHCPLAZ 08:20
DX: D50.9 Iron deficiency anemia, unspecified (principal); I11.0 Hypertensive heart disease with heart failure; Z12.5 Encounter for screening for malignant neoplasm of prostate; E55.9 Vitamin D deficiency, unspecified
CPT/HCPCS: 80053

== ENCOUNTER → 2018-09-24 | Outpatient (CLI) | payer MEDICARE ==
[~2018-09-24] MED LIST changes: +AMLO5TAB6 PO; +AZIT-10 PO; +CELE40TA PO; +FINA5TAB2 PO; +FLOM0.4C39 PO; +LISI-538; +LISI-538 PO; +LISI40TA52 PO; +METO1TAB32 PO; +NORV5TAB PO; +PROAAER10 INH; -PROHANCE 279.3MG/ML 5ML VIAL (A9576) As Ordered; +SING10TA32 PO; +TYLE325T5 PO; +VITA100067 PO; +VITA500T3 PO; +ZITHTAB PO
--- NOTE | 2018-09-24 11:37 | REP ---
Clinical: Dyspnea . Comparison: 03/10/2017 . Technique: PA and lateral. Findings: The mediastinum and cardiac silhouette are normal. The lung nolasco are clear and without acute consolidation, effusion, or pneumothorax. The skeletal structures are intact and normal. Impression: 1. No acute cardiopulmonary process. Electronically Signed by Fantasma Bonds MD 09/24/2018 11:29 A
== END ==
LOC: M RAD 11:10
PROVIDERS: ATTEND Family Medicine
DX: R06.09 Other forms of dyspnea (principal)

== ENCOUNTER → 2018-09-24 | Outpatient (REF) | payer MEDICARE ==
[2018-09-24 12:51] LABS: BASO # 0.1 10^3/uL (0.0-0.2); BASO % 0.8 % (0.0-1.0); EOS # 0.2 10^3/uL (0.0-0.50); EOS % 2.1 % (0.0-3.0); HEMATOCRIT 36.8 % (42.0-52.0); HEMOGLOBIN 11.2 g/dl (13.5-17.5); LYMPH # 2.1 10^3/uL (1.5-4.5); LYMPH % 23.8 % (24.0-44.0); MEAN CORPUSCULAR HEMOGLOBIN 24.8 pg (27.0-33.0); MEAN CORPUSCULAR HGB CONC 30.4 g/dl (32.0-36.5); MEAN CORPUSCULAR VOLUME 81.6 fl (80.0-96.0); MONO # 0.5 10^3/uL (0.0-0.8); MONO % 6.2 % (0.0-5.0); NEUTROPHILS # 5.7 10^3/uL (1.8-7.7); NEUTROPHILS % 66.4 % (36.0-66.0); PLATELET COUNT, AUTOMATED 289 10^3/uL (150-450); RED BLOOD COUNT 4.51 10^6/uL (4.30-6.10); WHITE BLOOD COUNT 8.6 10^3/uL (4.0-10.0)
[2018-09-24 13:16] LABS: BLOOD UREA NITROGEN 22 MG/DL (7-18); CALCIUM LEVEL 8.6 MG/DL (8.8-10.2); CARBON DIOXIDE LEVEL 28 MEQ/L (21-32); CHLORIDE LEVEL 108 MEQ/L (98-107); CREATININE FOR GFR 1.06 MG/DL (0.70-1.30); GLOMERULAR FILTRATION RATE > 60.0 (>35); GLUCOSE, FASTING 69 MG/DL (70-100); NT-PRO BNP 92 PG/ML (<450); POTASSIUM SERUM 4.9 MEQ/L (3.5-5.1); SODIUM LEVEL 141 MEQ/L (136-145); TROPONIN I < 0.02 NG/ML (< 0.10)
== END ==
LOC: M SFHCPLAZ 10:34
PROVIDERS: ATTEND Family Medicine
DX: R06.09 Other forms of dyspnea (principal); M79.89 Other specified soft tissue disorders

== ENCOUNTER → 2018-11-12 | Outpatient (REF) | payer MEDICARE ==
[~2018-11-12] MED LIST changes: +CYAN500T8 PO; -VITA500T3 PO
[2018-11-12 13:36] LABS: APPEARANCE, URINE CLEAR (CLEAR); BACTERIA, URINE AUTO NEGATIVE (NEGATIVE); BILIRUBIN, URINE AUTO NEGATIVE (NEGATIVE); BLOOD, URINE BLOOD 1+ (NEGATIVE); COLOR, URINE STRAW (YELLOW); GLUCOSE, URINE (UA) AUTO NEGATIVE (NEGATIVE); KETONE, URINE AUTO NEGATIVE (NEGATIVE); LEUKOCYTE ESTERASE, URINE AUTO NEGATIVE (NEGATIVE); NITRITE, URINE AUTO NEGATIVE (NEGATIVE); PROTEIN, URINE AUTO NEGATIVE (NEGATIVE); RBC, URINE AUTO 1 /HPF (0-3); SPECIFIC GRAVITY URINE AUTO 1.006 (1.002-1.035); SQUAMOUS EPITHELIAL CELL UR AU 0 /HPF (0-6); UROBILINOGEN, URINE AUTO 0.2 mg/dL (0.0-2.0); WBC, URINE AUTO 0 /HPF (0-3)
== END ==
LOC: M SMT 12:53
PROVIDERS: ATTEND Urology
DX: R35.1 Nocturia (principal)
CPT/HCPCS: 51798; 81001; G0463

== ENCOUNTER → 2019-05-24 | Outpatient (CLI) | payer MEDICARE ==
--- NOTE | 2019-05-24 10:46 | REP ---
CHEST X-RAY: Two views. HISTORY: Shortness of breath. Wheezing. COMPARISON STUDY: September 24, 2018. FINDINGS: The lungs are symmetrically aerated and clear. Pleural angles are sharp. Heart size is normal. The aorta is somewhat tortuous. Pulmonary vasculature is not increased. Findings are unchanged. IMPRESSION: No acute disease. Electronically Signed by Kush Kaminski MD 05/24/2019 03:50 P
== END ==
LOC: M RAD 09:23
PROVIDERS: ATTEND Physician Assistant
DX: R06.02 Shortness of breath (principal)

== ENCOUNTER 2021-04-11 11:00 | Inpatient (IN) | payer MEDICARE, MEDICAID ==
[~2021-04-11] VITALS: Ht 167.6 cm; Wt 77.0 kg
[~2021-04-11 11:00] MED LIST changes: +AMLO1TAB24 PO; -AMLO5TAB6 PO; +CYAN500T14 PO; -CYAN500T8 PO; -LISI-538; -LISI-538 PO; +LISI20TA33; +LISI20TA33 PO
[2021-04-11 11:46] LABS: BASO # 0.1 10^3/uL (0.0-0.2); BASO % 0.8 % (0.0-1.0); EOS # 0.1 10^3/uL (0.0-0.5); EOS % 1.9 % (0.0-3.0); HEMATOCRIT 39.2 % (42.0-52.0); HEMOGLOBIN 11.9 g/dl (13.5-17.5); LYMPH # 1.7 10^3/uL (1.5-5.0); LYMPH % 26.3 % (24.0-44.0); MEAN CORPUSCULAR HEMOGLOBIN 24.7 pg (27.0-33.0); MEAN CORPUSCULAR HGB CONC 30.4 g/dl (32.0-36.5); MEAN CORPUSCULAR VOLUME 81.3 fl (80.0-96.0); MONO # 0.7 10^3/uL (0.0-0.8); MONO % 10.9 % (2.0-8.0); NEUTROPHILS # 3.8 10^3/uL (1.5-8.5); NEUTROPHILS % 59.5 % (36.0-66.0); PLATELET COUNT, AUTOMATED 237 10^3/uL (150-450); RED BLOOD COUNT 4.82 10^6/uL (4.30-6.10); WHITE BLOOD COUNT 6.3 10^3/uL (4.0-10.0)
[2021-04-11 12:01] LABS: RSV AMPLIFICATION NEGATIVE (NEGATIVE)
[2021-04-11] MEDS ORDERED: LEXA1TAB2 PO (12:06)
[2021-04-11] MEDS ORDERED: QUET100T2 PO (12:06)
[2021-04-11] MEDS ORDERED: TOPR25TA PO (12:06)
[2021-04-11] MEDS ORDERED: AMLO25TA PO (12:06)
[2021-04-11] MEDS ORDERED: BREO1INH INH (12:07)
[2021-04-11] MEDS ORDERED: FLOM0.4C39 PO (12:08)
[2021-04-11] MEDS ORDERED: TRAM50TA2 PO (12:08)
[2021-04-11] MEDS ORDERED: HOME MED LIST COMPLETE! XX SCH (12:15)
[2021-04-11] MEDS ORDERED: methylPREDNISolone 125MG 2ML VIAL IV ONE (12:20)
[2021-04-11 13:29] LABS: CALCIUM LEVEL 8.3 MG/DL (8.8-10.2); CREATININE FOR GFR 1.36 MG/DL (0.70-1.30); FREE T4 0.65 NG/DL (0.76-1.46); GLOMERULAR FILTRATION RATE 53.1 (>35); MAGNESIUM LEVEL 2.1 MG/DL (1.8-2.4); POTASSIUM SERUM 4.2 MEQ/L (3.5-5.1); THYROID STIMULATING HORMONE 7.62 uIU/ML (0.358-3.740)
[2021-04-11] MEDS ORDERED: cefTRIAXone SOD 1 GM in D5W MINI-BAG PLUS 50 ML IV ONE (13:55)
[2021-04-11] MEDS ORDERED: AZITHROMYCIN INJ 500 MG, VIAL MATE ADAPTER 1 EACH in NS 250 ML IV ONE (13:55)
[2021-04-11] MEDS ORDERED: MOM 30ML SUSPENSION UDC PO PRN (15:15)
[2021-04-11] MEDS ORDERED: MAALOX 30 ML SUSP *UDC PO PRN (15:15)
[2021-04-11 17:10] VITALS: BP 123/58
[2021-04-11 17:13] LABS: CK-MB VALUE MASS 3.6 NG/ML (<3.6); MB/CK RELATIVE INDEX 2.65 (< OR =4)
[2021-04-11] MEDS: NS 1,000 ML IV SCH (17:14)
[2021-04-11] MEDS: QUEtiapine FUMARATE 100 MG TAB PO SCH ×2 (18:20→22:45)
[2021-04-11 18:25] VITALS: BP_SYST 121; BP_SYST 130; BP_SYST 131; BP_DIAS 61; BP_DIAS 62; BP_DIAS 83
[2021-04-11] MEDS: ADVAIR HFA 115/21MCG INHALER INH SCH (19:59)
[2021-04-11 20:00] VITALS: BP 107/62
[2021-04-11] MEDS ORDERED: OLANZapine INTRAMUSCULAR 10MG VIAL IM PRN (22:30)
[2021-04-11 22:45] LABS: CK-MB VALUE MASS 3.3 NG/ML (<3.6); MB/CK RELATIVE INDEX 2.17 (< OR =4)
[2021-04-11] MEDS: guaiFENesin ER 600 MG TAB PO SCH (23:00)
[2021-04-11] MEDS: DOCUSATE SODIUM 100MG CAPSULE PO SCH (23:00)
[2021-04-11] MEDS: HEPARIN SOD (PORCINE) 5000UNITS/ML 1ML VIAL/SYRINGE SC SCH (23:00)
[2021-04-12] VITALS: BP 124/55
[2021-04-12] MEDS: NS 1,000 ML IV SCH (03:22)
[2021-04-12 06:00] VITALS: BP 151/72
[2021-04-12 06:17] LABS: BASO % 0.1 % (0.0-1.0); HEMATOCRIT 35.4 % (42.0-52.0); LYMPH # 0.9 10^3/uL (1.5-5.0); LYMPH % 12.1 % (24.0-44.0); MEAN CORPUSCULAR HGB CONC 31.1 g/dl (32.0-36.5); MEAN CORPUSCULAR VOLUME 77.3 fl (80.0-96.0); MONO # 0.6 10^3/uL (0.0-0.8); MONO % 7.4 % (2.0-8.0); PLATELET COUNT, AUTOMATED 263 10^3/uL (150-450); RED BLOOD COUNT 4.58 10^6/uL (4.30-6.10); WHITE BLOOD COUNT 7.6 10^3/uL (4.0-10.0)
[2021-04-12 06:44] LABS: BLOOD UREA NITROGEN 20 MG/DL (7-18); CALCIUM LEVEL 8.4 MG/DL (8.8-10.2); CARBON DIOXIDE LEVEL 23 MEQ/L (21-32); CHLORIDE LEVEL 107 MEQ/L (98-107); CREATININE FOR GFR 1.09 MG/DL (0.70-1.30); GLOMERULAR FILTRATION RATE > 60.0 (>35); GLUCOSE, FASTING 106 MG/DL (70-100); POTASSIUM SERUM 3.8 MEQ/L (3.5-5.1); SODIUM LEVEL 139 MEQ/L (136-145)
[2021-04-12 06:52] LABS: CK-MB VALUE MASS 9.7 NG/ML (<3.6); MB/CK RELATIVE INDEX 2.13 (< OR =4)
[2021-04-12] MEDS: HEPARIN SOD (PORCINE) 5000UNITS/ML 1ML VIAL/SYRINGE SC SCH ×3 (06:54→22:00)
[2021-04-12] MEDS: ADVAIR HFA 115/21MCG INHALER INH SCH ×2 (08:05→20:00)
[2021-04-12] MEDS: ESCITALOPRAM OXALATE 10 MG TAB (LEXAPRO) PO SCH (08:35)
[2021-04-12] MEDS: TAMSULOSIN 0.4 MG CAP PO SCH (08:36)
[2021-04-12] MEDS: QUEtiapine FUMARATE 100 MG TAB PO SCH ×3 (08:36→20:08)
[2021-04-12] MEDS: METOPROLOL SUCC *XL* 25MG TAB (TopROL *XL*) PO SCH (08:39)
[2021-04-12] MEDS: guaiFENesin ER 600 MG TAB PO SCH ×2 (08:39→20:08)
[2021-04-12] MEDS: DOCUSATE SODIUM 100MG CAPSULE PO SCH (09:00)
[2021-04-12 10:00] VITALS: BP 137/85
[2021-04-12] MEDS: LEVOTHYROXINE 75MCG TABLET (0.075MG) PO SCH (12:20)
[2021-04-12] MEDS ORDERED: cefTRIAXone SOD 1 GM in D5W MINI-BAG PLUS 50 ML IV SCH (14:00)
[2021-04-12] MEDS ORDERED: AZITHROMYCIN INJ 500 MG, VIAL MATE ADAPTER 1 EACH in NS 250 ML IV SCH (15:00)
[2021-04-12 15:34] VITALS: BP 120/58
[2021-04-12 20:00] VITALS: BP 143/68
[2021-04-13 00:11] VITALS: BP 170/63
[2021-04-13 05:05] VITALS: BP 134/72
[2021-04-13 05:59] LABS: BASO % 0.2 % (0.0-1.0); EOS % 0.3 % (0.0-3.0); HEMATOCRIT 32.7 % (42.0-52.0); HEMOGLOBIN 10.1 g/dl (13.5-17.5); LYMPH # 1.3 10^3/uL (1.5-5.0); LYMPH % 20.1 % (24.0-44.0); MEAN CORPUSCULAR HGB CONC 30.9 g/dl (32.0-36.5); MEAN CORPUSCULAR VOLUME 77.9 fl (80.0-96.0); MONO # 0.4 10^3/uL (0.0-0.8); MONO % 6.7 % (2.0-8.0); NEUTROPHILS # 4.5 10^3/uL (1.5-8.5); NEUTROPHILS % 72.2 % (36.0-66.0); PLATELET COUNT, AUTOMATED 238 10^3/uL (150-450); WHITE BLOOD COUNT 6.2 10^3/uL (4.0-10.0)
[2021-04-13] MEDS: LEVOTHYROXINE 75MCG TABLET (0.075MG) PO SCH (06:00)
[2021-04-13] MEDS: HEPARIN SOD (PORCINE) 5000UNITS/ML 1ML VIAL/SYRINGE SC SCH ×3 (06:00→20:08)
[2021-04-13 06:21] LABS: BLOOD UREA NITROGEN 24 MG/DL (7-18); CALCIUM LEVEL 8.1 MG/DL (8.8-10.2); CARBON DIOXIDE LEVEL 25 MEQ/L (21-32); CHLORIDE LEVEL 111 MEQ/L (98-107); CREATININE FOR GFR 0.96 MG/DL (0.70-1.30); GLOMERULAR FILTRATION RATE > 60.0 (>35); GLUCOSE, FASTING 87 MG/DL (70-100); MAGNESIUM LEVEL 1.9 MG/DL (1.8-2.4); POTASSIUM SERUM 3.7 MEQ/L (3.5-5.1); SODIUM LEVEL 141 MEQ/L (136-145)
[2021-04-13] MEDS: ADVAIR HFA 115/21MCG INHALER INH SCH ×2 (07:59→19:58)
[2021-04-13] MEDS: QUEtiapine FUMARATE 100 MG TAB PO SCH ×3 (08:50→20:07)
[2021-04-13] MEDS: guaiFENesin ER 600 MG TAB PO SCH ×2 (08:50→20:07)
[2021-04-13] MEDS: TAMSULOSIN 0.4 MG CAP PO SCH (08:53)
[2021-04-13] MEDS: ESCITALOPRAM OXALATE 10 MG TAB (LEXAPRO) PO SCH (08:53)
[2021-04-13] MEDS: METOPROLOL SUCC *XL* 25MG TAB (TopROL *XL*) PO SCH (08:55)
[2021-04-13 14:00] VITALS: BP 161/69
[2021-04-13] MEDS: ALBUTEROL 90 MCG/ACT 8GM HFA INHALER INH PRN (18:39)
[2021-04-13 19:33] VITALS: BP 127/60
[2021-04-13] MEDS: ACETAMINOPHEN TAB 650MG DOSE (2X325MG) PO PRN (20:07)
[2021-04-13] MEDS: RAMELTEON 8 MG TAB (ROZEREM) PO PRN (20:07)
[2021-04-14 04:00] VITALS: BP 131/60
[2021-04-14] MEDS: HEPARIN SOD (PORCINE) 5000UNITS/ML 1ML VIAL/SYRINGE SC SCH ×3 (06:15→21:38)
[2021-04-14] MEDS: LEVOTHYROXINE 75MCG TABLET (0.075MG) PO SCH (06:15)
[2021-04-14] MEDS: ADVAIR HFA 115/21MCG INHALER INH SCH ×2 (07:42→20:31)
[2021-04-14 08:02] LABS: BASO % 0.2 % (0.0-1.0); EOS % 0.7 % (0.0-3.0); HEMATOCRIT 33.2 % (42.0-52.0); HEMOGLOBIN 10.2 g/dl (13.5-17.5); MEAN CORPUSCULAR HEMOGLOBIN 24.2 pg (27.0-33.0); MEAN CORPUSCULAR HGB CONC 30.7 g/dl (32.0-36.5); MEAN CORPUSCULAR VOLUME 78.9 fl (80.0-96.0); MONO # 0.4 10^3/uL (0.0-0.8); MONO % 7.3 % (2.0-8.0); NEUTROPHILS # 3.9 10^3/uL (1.5-8.5); NEUTROPHILS % 73.2 % (36.0-66.0); PLATELET COUNT, AUTOMATED 240 10^3/uL (150-450); RED BLOOD COUNT 4.21 10^6/uL (4.30-6.10); WHITE BLOOD COUNT 5.3 10^3/uL (4.0-10.0)
[2021-04-14 08:20] LABS: BLOOD UREA NITROGEN 20 MG/DL (7-18); CALCIUM LEVEL 8.4 MG/DL (8.8-10.2); CARBON DIOXIDE LEVEL 27 MEQ/L (21-32); CHLORIDE LEVEL 107 MEQ/L (98-107); CREATININE FOR GFR 0.89 MG/DL (0.70-1.30); GLOMERULAR FILTRATION RATE > 60.0 (>35); GLUCOSE, FASTING 98 MG/DL (70-100); POTASSIUM SERUM 4.2 MEQ/L (3.5-5.1); SODIUM LEVEL 139 MEQ/L (136-145)
[2021-04-14] MEDS: ESCITALOPRAM OXALATE 10 MG TAB (LEXAPRO) PO SCH (09:05)
[2021-04-14] MEDS: TAMSULOSIN 0.4 MG CAP PO SCH (09:05)
[2021-04-14] MEDS: guaiFENesin ER 600 MG TAB PO SCH ×2 (09:07→21:38)
[2021-04-14] MEDS: QUEtiapine FUMARATE 100 MG TAB PO SCH ×3 (09:07→21:38)
[2021-04-14] MEDS: METOPROLOL SUCC *XL* 25MG TAB (TopROL *XL*) PO SCH (09:07)
[2021-04-14 14:00] VITALS: BP 134/91
[2021-04-14] MEDS: RAMELTEON 8 MG TAB (ROZEREM) PO PRN (21:37)
[2021-04-14] MEDS: ACETAMINOPHEN TAB 650MG DOSE (2X325MG) PO PRN (21:38)
[2021-04-15 04:00] VITALS: BP 106/53
[2021-04-15] MEDS: HEPARIN SOD (PORCINE) 5000UNITS/ML 1ML VIAL/SYRINGE SC SCH ×3 (06:40→20:10)
[2021-04-15] MEDS: LEVOTHYROXINE 75MCG TABLET (0.075MG) PO SCH (06:40)
[2021-04-15] MEDS: ADVAIR HFA 115/21MCG INHALER INH SCH ×2 (07:43→19:37)
[2021-04-15 08:39] LABS: BASO % 0.4 % (0.0-1.0); EOS # 0.1 10^3/uL (0.0-0.5); EOS % 2.2 % (0.0-3.0); HEMOGLOBIN 10.6 g/dl (13.5-17.5); LYMPH # 1.3 10^3/uL (1.5-5.0); LYMPH % 25.6 % (24.0-44.0); MEAN CORPUSCULAR HEMOGLOBIN 24.5 pg (27.0-33.0); MEAN CORPUSCULAR HGB CONC 28.6 g/dl (32.0-36.5); MEAN CORPUSCULAR VOLUME 85.5 fl (80.0-96.0); MONO # 0.4 10^3/uL (0.0-0.8); MONO % 8.6 % (2.0-8.0); NEUTROPHILS # 3.1 10^3/uL (1.5-8.5); NEUTROPHILS % 62.6 % (36.0-66.0); PLATELET COUNT, AUTOMATED 174 10^3/uL (150-450); RED BLOOD COUNT 4.33 10^6/uL (4.30-6.10)
[2021-04-15 08:57] LABS: BLOOD UREA NITROGEN 19 MG/DL (7-18); CALCIUM LEVEL 8.1 MG/DL (8.8-10.2); CARBON DIOXIDE LEVEL 19 MEQ/L (21-32); CHLORIDE LEVEL 109 MEQ/L (98-107); CREATININE FOR GFR 0.84 MG/DL (0.70-1.30); GLOMERULAR FILTRATION RATE > 60.0 (>35); GLUCOSE, FASTING 84 MG/DL (70-100); MAGNESIUM LEVEL 1.9 MG/DL (1.8-2.4); POTASSIUM SERUM 4.8 MEQ/L (3.5-5.1); SODIUM LEVEL 139 MEQ/L (136-145)
[2021-04-15] MEDS: TAMSULOSIN 0.4 MG CAP PO SCH (10:20)
[2021-04-15] MEDS: QUEtiapine FUMARATE 100 MG TAB PO SCH ×3 (10:20→20:10)
[2021-04-15] MEDS: ESCITALOPRAM OXALATE 10 MG TAB (LEXAPRO) PO SCH (10:20)
[2021-04-15] MEDS: guaiFENesin ER 600 MG TAB PO SCH ×2 (10:20→20:10)
[2021-04-15] MEDS: METOPROLOL SUCC *XL* 25MG TAB (TopROL *XL*) PO SCH (10:25)
[2021-04-16 04:00] VITALS: BP 132/62
[2021-04-16] MEDS: LEVOTHYROXINE 75MCG TABLET (0.075MG) PO SCH (06:06)
[2021-04-16] MEDS: HEPARIN SOD (PORCINE) 5000UNITS/ML 1ML VIAL/SYRINGE SC SCH ×3 (06:06→23:36)
[2021-04-16] MEDS: ADVAIR HFA 115/21MCG INHALER INH SCH ×2 (08:25→20:00)
[2021-04-16] MEDS: QUEtiapine FUMARATE 100 MG TAB PO SCH ×3 (08:57→23:35)
[2021-04-16] MEDS: ESCITALOPRAM OXALATE 10 MG TAB (LEXAPRO) PO SCH (08:57)
[2021-04-16] MEDS: guaiFENesin ER 600 MG TAB PO SCH ×2 (08:58→23:35)
[2021-04-16] MEDS: METOPROLOL SUCC *XL* 25MG TAB (TopROL *XL*) PO SCH (08:58)
[2021-04-16] MEDS: TAMSULOSIN 0.4 MG CAP PO SCH (08:58)
[2021-04-16 11:51] LABS: BASO % 0.4 % (0.0-1.0); EOS # 0.2 10^3/uL (0.0-0.5); EOS % 3.7 % (0.0-3.0); HEMATOCRIT 33.1 % (42.0-52.0); HEMOGLOBIN 10.5 g/dl (13.5-17.5); LYMPH # 1.5 10^3/uL (1.5-5.0); LYMPH % 26.9 % (24.0-44.0); MEAN CORPUSCULAR HEMOGLOBIN 24.7 pg (27.0-33.0); MEAN CORPUSCULAR HGB CONC 31.7 g/dl (32.0-36.5); MEAN CORPUSCULAR VOLUME 77.9 fl (80.0-96.0); MONO # 0.4 10^3/uL (0.0-0.8); MONO % 7.5 % (2.0-8.0); NEUTROPHILS # 3.3 10^3/uL (1.5-8.5); NEUTROPHILS % 59.5 % (36.0-66.0); PLATELET COUNT, AUTOMATED 237 10^3/uL (150-450); RED BLOOD COUNT 4.25 10^6/uL (4.30-6.10); WHITE BLOOD COUNT 5.6 10^3/uL (4.0-10.0)
[2021-04-16 12:09] LABS: BLOOD UREA NITROGEN 19 MG/DL (7-18); CALCIUM LEVEL 8.3 MG/DL (8.8-10.2); CARBON DIOXIDE LEVEL 23 MEQ/L (21-32); CHLORIDE LEVEL 106 MEQ/L (98-107); GLOMERULAR FILTRATION RATE > 60.0 (>35); GLUCOSE, FASTING 102 MG/DL (70-100); MAGNESIUM LEVEL 1.8 MG/DL (1.8-2.4); POTASSIUM SERUM 4.2 MEQ/L (3.5-5.1); SODIUM LEVEL 136 MEQ/L (136-145)
[2021-04-16 14:15] VITALS: BP 106/72
[2021-04-16] MEDS: RAMELTEON 8 MG TAB (ROZEREM) PO PRN (23:35)
[2021-04-17 04:00] VITALS: BP 130/64
[2021-04-17] MEDS ORDERED: SODIUM CHLORIDE 0.9% 250ML IV ONE (05:55)
[2021-04-17] MEDS: HEPARIN SOD (PORCINE) 5000UNITS/ML 1ML VIAL/SYRINGE SC SCH ×3 (06:05→22:17)
[2021-04-17] MEDS: LEVOTHYROXINE 75MCG TABLET (0.075MG) PO SCH (06:05)
[2021-04-17 06:57] LABS: BASO % 0.3 % (0.0-1.0); EOS # 0.2 10^3/uL (0.0-0.5); EOS % 2.2 % (0.0-3.0); HEMATOCRIT 32.9 % (42.0-52.0); HEMOGLOBIN 10.2 g/dl (13.5-17.5); LYMPH # 1.3 10^3/uL (1.5-5.0); LYMPH % 16.4 % (24.0-44.0); MEAN CORPUSCULAR HEMOGLOBIN 24.1 pg (27.0-33.0); MEAN CORPUSCULAR VOLUME 77.8 fl (80.0-96.0); MONO # 0.6 10^3/uL (0.0-0.8); MONO % 7.2 % (2.0-8.0); NEUTROPHILS # 5.5 10^3/uL (1.5-8.5); NEUTROPHILS % 72.5 % (36.0-66.0); PLATELET COUNT, AUTOMATED 246 10^3/uL (150-450); RED BLOOD COUNT 4.23 10^6/uL (4.30-6.10); WHITE BLOOD COUNT 7.6 10^3/uL (4.0-10.0)
[2021-04-17] MEDS: IPRATROPIUM 0.5MG/ALBUTEROL 2.5MG INH SOL UD 3ML (DUONEB) NEB SCH ×3 (07:24→19:44)
[2021-04-17] MEDS: ADVAIR HFA 115/21MCG INHALER INH SCH ×2 (07:25→19:44)
[2021-04-17 07:26] LABS: BLOOD UREA NITROGEN 23 MG/DL (7-18); CALCIUM LEVEL 8.2 MG/DL (8.8-10.2); CARBON DIOXIDE LEVEL 24 MEQ/L (21-32); CHLORIDE LEVEL 107 MEQ/L (98-107); CREATININE FOR GFR 0.99 MG/DL (0.70-1.30); GLOMERULAR FILTRATION RATE > 60.0 (>35); GLUCOSE, FASTING 113 MG/DL (70-100); MAGNESIUM LEVEL 1.9 MG/DL (1.8-2.4); NT-PRO BNP 67 PG/ML (<450); SODIUM LEVEL 137 MEQ/L (136-145)
[2021-04-17] MEDS: ESCITALOPRAM OXALATE 10 MG TAB (LEXAPRO) PO SCH (09:09)
[2021-04-17] MEDS: TAMSULOSIN 0.4 MG CAP PO SCH (09:09)
[2021-04-17] MEDS: QUEtiapine FUMARATE 100 MG TAB PO SCH ×3 (09:09→22:17)
[2021-04-17] MEDS: guaiFENesin ER 600 MG TAB PO SCH ×2 (09:09→22:17)
[2021-04-17] MEDS: METOPROLOL SUCC *XL* 25MG TAB (TopROL *XL*) PO SCH (09:12)
[2021-04-17] MEDS: ALBUTEROL 90 MCG/ACT 8GM HFA INHALER INH PRN (13:54)
[2021-04-17 14:42] LABS: BASO % 0.2 % (0.0-1.0); EOS # 0.2 10^3/uL (0.0-0.5); EOS % 1.7 % (0.0-3.0); HEMATOCRIT 33.2 % (42.0-52.0); HEMOGLOBIN 10.6 g/dl (13.5-17.5); LYMPH # 1.4 10^3/uL (1.5-5.0); LYMPH % 15.3 % (24.0-44.0); MEAN CORPUSCULAR HEMOGLOBIN 24.8 pg (27.0-33.0); MEAN CORPUSCULAR HGB CONC 31.9 g/dl (32.0-36.5); MEAN CORPUSCULAR VOLUME 77.6 fl (80.0-96.0); MONO # 0.6 10^3/uL (0.0-0.8); NEUTROPHILS # 6.7 10^3/uL (1.5-8.5); NEUTROPHILS % 74.2 % (36.0-66.0); PLATELET COUNT, AUTOMATED 248 10^3/uL (150-450); RED BLOOD COUNT 4.28 10^6/uL (4.30-6.10)
[2021-04-17] MEDS: RAMELTEON 8 MG TAB (ROZEREM) PO PRN (22:17)
[2021-04-18] MEDS: IPRATROPIUM 0.5MG/ALBUTEROL 2.5MG INH SOL UD 3ML (DUONEB) NEB SCH ×4 (02:00→20:00)
[2021-04-18] MEDS: LEVOTHYROXINE 75MCG TABLET (0.075MG) PO SCH (05:56)
[2021-04-18] MEDS: HEPARIN SOD (PORCINE) 5000UNITS/ML 1ML VIAL/SYRINGE SC SCH ×3 (05:58→21:37)
[2021-04-18 06:00] VITALS: BP 133/60
[2021-04-18] MEDS: ADVAIR HFA 115/21MCG INHALER INH SCH ×2 (07:39→20:09)
[2021-04-18 07:48] LABS: BASO % 0.4 % (0.0-1.0); EOS # 0.2 10^3/uL (0.0-0.5); EOS % 2.1 % (0.0-3.0); HEMATOCRIT 31.4 % (42.0-52.0); HEMOGLOBIN 9.7 g/dl (13.5-17.5); LYMPH # 1.3 10^3/uL (1.5-5.0); LYMPH % 16.5 % (24.0-44.0); MEAN CORPUSCULAR HEMOGLOBIN 24.3 pg (27.0-33.0); MEAN CORPUSCULAR HGB CONC 30.9 g/dl (32.0-36.5); MEAN CORPUSCULAR VOLUME 78.7 fl (80.0-96.0); MONO # 0.6 10^3/uL (0.0-0.8); MONO % 8.1 % (2.0-8.0); NEUTROPHILS # 5.5 10^3/uL (1.5-8.5); NEUTROPHILS % 71.2 % (36.0-66.0); PLATELET COUNT, AUTOMATED 253 10^3/uL (150-450); RED BLOOD COUNT 3.99 10^6/uL (4.30-6.10); WHITE BLOOD COUNT 7.7 10^3/uL (4.0-10.0)
[2021-04-18 08:20] LABS: BLOOD UREA NITROGEN 21 MG/DL (7-18); CALCIUM LEVEL 8.1 MG/DL (8.8-10.2); CARBON DIOXIDE LEVEL 24 MEQ/L (21-32); CHLORIDE LEVEL 107 MEQ/L (98-107); CREATININE FOR GFR 0.91 MG/DL (0.70-1.30); GLOMERULAR FILTRATION RATE > 60.0 (>35); GLUCOSE, FASTING 91 MG/DL (70-100); POTASSIUM SERUM 4.1 MEQ/L (3.5-5.1); SODIUM LEVEL 138 MEQ/L (136-145)
[2021-04-18] MEDS: ESCITALOPRAM OXALATE 10 MG TAB (LEXAPRO) PO SCH (08:26)
[2021-04-18] MEDS: TAMSULOSIN 0.4 MG CAP PO SCH (08:27)
[2021-04-18] MEDS: guaiFENesin ER 600 MG TAB PO SCH ×2 (08:27→21:37)
[2021-04-18] MEDS: QUEtiapine FUMARATE 100 MG TAB PO SCH ×3 (08:27→21:37)
[2021-04-18] MEDS: METOPROLOL SUCC *XL* 25MG TAB (TopROL *XL*) PO SCH (08:29)
[2021-04-18] MEDS: RAMELTEON 8 MG TAB (ROZEREM) PO PRN (21:38)
[2021-04-18] MEDS: ACETAMINOPHEN TAB 650MG DOSE (2X325MG) PO PRN (21:38)
[2021-04-19] MEDS: IPRATROPIUM 0.5MG/ALBUTEROL 2.5MG INH SOL UD 3ML (DUONEB) NEB SCH ×4 (02:00→23:38)
[2021-04-19 04:00] VITALS: BP 153/66
[2021-04-19] MEDS: LEVOTHYROXINE 75MCG TABLET (0.075MG) PO SCH (06:09)
[2021-04-19] MEDS: HEPARIN SOD (PORCINE) 5000UNITS/ML 1ML VIAL/SYRINGE SC SCH ×3 (06:09→22:36)
[2021-04-19] MEDS: ADVAIR HFA 115/21MCG INHALER INH SCH ×2 (08:40→23:38)
[2021-04-19] MEDS: ESCITALOPRAM OXALATE 10 MG TAB (LEXAPRO) PO SCH (10:01)
[2021-04-19] MEDS: QUEtiapine FUMARATE 100 MG TAB PO SCH ×3 (10:01→22:36)
[2021-04-19] MEDS: guaiFENesin ER 600 MG TAB PO SCH ×2 (10:02→22:36)
[2021-04-19] MEDS: TAMSULOSIN 0.4 MG CAP PO SCH (10:02)
[2021-04-19] MEDS: METOPROLOL SUCC *XL* 25MG TAB (TopROL *XL*) PO SCH (10:04)
[2021-04-20] MEDS: IPRATROPIUM 0.5MG/ALBUTEROL 2.5MG INH SOL UD 3ML (DUONEB) NEB SCH ×4 (04:32→20:00)
[2021-04-20 05:17] VITALS: BP 128/60
[2021-04-20] MEDS: HEPARIN SOD (PORCINE) 5000UNITS/ML 1ML VIAL/SYRINGE SC SCH ×3 (05:45→21:15)
[2021-04-20] MEDS: LEVOTHYROXINE 75MCG TABLET (0.075MG) PO SCH (05:46)
[2021-04-20 08:19] VITALS: BP 139/69
[2021-04-20] MEDS: QUEtiapine FUMARATE 100 MG TAB PO SCH ×4 (08:20→21:15)
[2021-04-20] MEDS: guaiFENesin ER 600 MG TAB PO SCH ×3 (08:20→21:15)
[2021-04-20] MEDS: METOPROLOL SUCC *XL* 25MG TAB (TopROL *XL*) PO SCH (08:20)
[2021-04-20] MEDS: TAMSULOSIN 0.4 MG CAP PO SCH (08:20)
[2021-04-20] MEDS: ESCITALOPRAM OXALATE 10 MG TAB (LEXAPRO) PO SCH (08:20)
[2021-04-20] MEDS: ADVAIR HFA 115/21MCG INHALER INH SCH ×2 (08:34→19:58)
[2021-04-20] MEDS: RAMELTEON 8 MG TAB (ROZEREM) PO PRN (21:15)
[2021-04-21] MEDS: IPRATROPIUM 0.5MG/ALBUTEROL 2.5MG INH SOL UD 3ML (DUONEB) NEB SCH ×4 (01:39→20:00)
[2021-04-21] MEDS: LEVOTHYROXINE 75MCG TABLET (0.075MG) PO SCH (05:37)
[2021-04-21] MEDS: HEPARIN SOD (PORCINE) 5000UNITS/ML 1ML VIAL/SYRINGE SC SCH ×3 (05:38→21:31)
[2021-04-21] MEDS: ADVAIR HFA 115/21MCG INHALER INH SCH ×2 (08:00→20:38)
[2021-04-21 08:31] VITALS: BP 128/60
[2021-04-21] MEDS: guaiFENesin ER 600 MG TAB PO SCH ×2 (08:34→21:31)
[2021-04-21] MEDS: QUEtiapine FUMARATE 100 MG TAB PO SCH ×3 (08:34→21:31)
[2021-04-21] MEDS: ESCITALOPRAM OXALATE 10 MG TAB (LEXAPRO) PO SCH (08:34)
[2021-04-21] MEDS: METOPROLOL SUCC *XL* 25MG TAB (TopROL *XL*) PO SCH (08:34)
[2021-04-21] MEDS: TAMSULOSIN 0.4 MG CAP PO SCH (08:34)
[2021-04-21 14:01] VITALS: BP 129/60
[2021-04-21] MEDS: RAMELTEON 8 MG TAB (ROZEREM) PO PRN (21:31)
[2021-04-21] MEDS: ACETAMINOPHEN TAB 650MG DOSE (2X325MG) PO PRN (21:32)
[2021-04-22] MEDS: IPRATROPIUM 0.5MG/ALBUTEROL 2.5MG INH SOL UD 3ML (DUONEB) NEB SCH ×4 (01:19→19:45)
[2021-04-22] MEDS: LEVOTHYROXINE 75MCG TABLET (0.075MG) PO SCH (05:23)
[2021-04-22] MEDS: HEPARIN SOD (PORCINE) 5000UNITS/ML 1ML VIAL/SYRINGE SC SCH ×3 (05:24→21:39)
[2021-04-22] MEDS: ADVAIR HFA 115/21MCG INHALER INH SCH ×2 (07:42→19:45)
[2021-04-22] MEDS: METOPROLOL SUCC *XL* 25MG TAB (TopROL *XL*) PO SCH (09:18)
[2021-04-22] MEDS: ESCITALOPRAM OXALATE 10 MG TAB (LEXAPRO) PO SCH (09:18)
[2021-04-22] MEDS: QUEtiapine FUMARATE 100 MG TAB PO SCH ×3 (09:18→21:39)
[2021-04-22] MEDS: guaiFENesin ER 600 MG TAB PO SCH ×2 (09:18→21:39)
[2021-04-22] MEDS: TAMSULOSIN 0.4 MG CAP PO SCH (09:18)
[2021-04-22 16:20] VITALS: BP 135/59
[2021-04-22] MEDS: RAMELTEON 8 MG TAB (ROZEREM) PO PRN (21:42)
[2021-04-22] MEDS: ACETAMINOPHEN TAB 650MG DOSE (2X325MG) PO PRN (21:42)
[2021-04-22 22:00] VITALS: BP 138/67
[2021-04-23] MEDS: IPRATROPIUM 0.5MG/ALBUTEROL 2.5MG INH SOL UD 3ML (DUONEB) NEB SCH ×4 (02:00→19:55)
[2021-04-23] MEDS: LEVOTHYROXINE 75MCG TABLET (0.075MG) PO SCH (05:38)
[2021-04-23] MEDS: HEPARIN SOD (PORCINE) 5000UNITS/ML 1ML VIAL/SYRINGE SC SCH ×3 (05:39→20:54)
[2021-04-23 06:00] VITALS: BP 144/65
[2021-04-23] MEDS: ADVAIR HFA 115/21MCG INHALER INH SCH ×2 (07:21→19:54)
[2021-04-23] MEDS: QUEtiapine FUMARATE 100 MG TAB PO SCH ×3 (09:23→20:55)
[2021-04-23] MEDS: ESCITALOPRAM OXALATE 10 MG TAB (LEXAPRO) PO SCH (09:24)
[2021-04-23] MEDS: TAMSULOSIN 0.4 MG CAP PO SCH (09:25)
[2021-04-23] MEDS: guaiFENesin ER 600 MG TAB PO SCH ×2 (09:25→20:55)
[2021-04-23] MEDS: METOPROLOL SUCC *XL* 25MG TAB (TopROL *XL*) PO SCH (09:26)
[2021-04-23] MEDS: ACETAMINOPHEN TAB 650MG DOSE (2X325MG) PO PRN (20:54)
[2021-04-23] MEDS: RAMELTEON 8 MG TAB (ROZEREM) PO PRN (20:55)
[2021-04-24] MEDS: IPRATROPIUM 0.5MG/ALBUTEROL 2.5MG INH SOL UD 3ML (DUONEB) NEB SCH ×4 (02:00→20:00)
[2021-04-24 06:00] VITALS: BP 159/71
[2021-04-24] MEDS: LEVOTHYROXINE 75MCG TABLET (0.075MG) PO SCH (06:09)
[2021-04-24] MEDS: HEPARIN SOD (PORCINE) 5000UNITS/ML 1ML VIAL/SYRINGE SC SCH ×3 (06:09→20:15)
[2021-04-24] MEDS: ADVAIR HFA 115/21MCG INHALER INH SCH ×2 (08:20→20:00)
[2021-04-24] MEDS: QUEtiapine FUMARATE 100 MG TAB PO SCH ×3 (08:59→20:15)
[2021-04-24] MEDS: ESCITALOPRAM OXALATE 10 MG TAB (LEXAPRO) PO SCH (09:00)
[2021-04-24] MEDS: guaiFENesin ER 600 MG TAB PO SCH ×2 (09:00→20:15)
[2021-04-24] MEDS: TAMSULOSIN 0.4 MG CAP PO SCH (09:00)
[2021-04-24] MEDS: METOPROLOL SUCC *XL* 25MG TAB (TopROL *XL*) PO SCH (09:00)
[2021-04-24] MEDS: RAMELTEON 8 MG TAB (ROZEREM) PO PRN (20:15)
[2021-04-25] MEDS: IPRATROPIUM 0.5MG/ALBUTEROL 2.5MG INH SOL UD 3ML (DUONEB) NEB SCH ×2 (02:00→07:34)
[2021-04-25] MEDS: LEVOTHYROXINE 75MCG TABLET (0.075MG) PO SCH (05:28)
[2021-04-25] MEDS: HEPARIN SOD (PORCINE) 5000UNITS/ML 1ML VIAL/SYRINGE SC SCH ×3 (05:29→21:10)
[2021-04-25 06:00] VITALS: BP 125/63
[2021-04-25] MEDS: ADVAIR HFA 115/21MCG INHALER INH SCH ×2 (07:33→17:16)
[2021-04-25] MEDS: ESCITALOPRAM OXALATE 10 MG TAB (LEXAPRO) PO SCH (08:55)
[2021-04-25] MEDS: QUEtiapine FUMARATE 100 MG TAB PO SCH ×3 (08:55→21:10)
[2021-04-25] MEDS: amLODIPine 5 MG TAB PO SCH (08:56)
[2021-04-25] MEDS: guaiFENesin ER 600 MG TAB PO SCH ×2 (08:56→21:10)
[2021-04-25] MEDS: METOPROLOL SUCC *XL* 25MG TAB (TopROL *XL*) PO SCH (08:56)
[2021-04-25] MEDS: TAMSULOSIN 0.4 MG CAP PO SCH (08:56)
[2021-04-26] MEDS: HEPARIN SOD (PORCINE) 5000UNITS/ML 1ML VIAL/SYRINGE SC SCH ×3 (05:43→22:05)
[2021-04-26] MEDS: LEVOTHYROXINE 75MCG TABLET (0.075MG) PO SCH (05:43)
[2021-04-26 06:32] VITALS: BP 122/58
[2021-04-26] MEDS: ADVAIR HFA 115/21MCG INHALER INH SCH ×2 (07:57→17:21)
[2021-04-26] MEDS: guaiFENesin ER 600 MG TAB PO SCH ×2 (08:37→20:12)
[2021-04-26] MEDS: TAMSULOSIN 0.4 MG CAP PO SCH (08:37)
[2021-04-26] MEDS: ACETAMINOPHEN TAB 650MG DOSE (2X325MG) PO PRN ×2 (08:38→20:12)
[2021-04-26] MEDS: ESCITALOPRAM OXALATE 10 MG TAB (LEXAPRO) PO SCH (08:38)
[2021-04-26] MEDS: METOPROLOL SUCC *XL* 25MG TAB (TopROL *XL*) PO SCH (08:38)
[2021-04-26] MEDS: QUEtiapine FUMARATE 100 MG TAB PO SCH ×3 (08:39→20:12)
[2021-04-26] MEDS: amLODIPine 5 MG TAB PO SCH (08:39)
[2021-04-26] MEDS: RAMELTEON 8 MG TAB (ROZEREM) PO PRN (20:12)
[2021-04-27 06:00] VITALS: BP 126/60
[2021-04-27] MEDS: LEVOTHYROXINE 75MCG TABLET (0.075MG) PO SCH (06:06)
[2021-04-27] MEDS: HEPARIN SOD (PORCINE) 5000UNITS/ML 1ML VIAL/SYRINGE SC SCH ×3 (06:06→20:19)
[2021-04-27] MEDS: ADVAIR HFA 115/21MCG INHALER INH SCH ×2 (08:01→17:50)
[2021-04-27] MEDS: ESCITALOPRAM OXALATE 10 MG TAB (LEXAPRO) PO SCH (08:54)
[2021-04-27] MEDS: amLODIPine 5 MG TAB PO SCH (08:54)
[2021-04-27] MEDS: TAMSULOSIN 0.4 MG CAP PO SCH (08:55)
[2021-04-27] MEDS: guaiFENesin ER 600 MG TAB PO SCH ×3 (08:55→20:19)
[2021-04-27] MEDS: QUEtiapine FUMARATE 100 MG TAB PO SCH ×3 (08:55→20:19)
[2021-04-27] MEDS: METOPROLOL SUCC *XL* 25MG TAB (TopROL *XL*) PO SCH (08:55)
[2021-04-27] MEDS: RAMELTEON 8 MG TAB (ROZEREM) PO PRN (20:19)
[2021-04-27] MEDS: ACETAMINOPHEN TAB 650MG DOSE (2X325MG) PO PRN (20:19)
[2021-04-28] MEDS: HEPARIN SOD (PORCINE) 5000UNITS/ML 1ML VIAL/SYRINGE SC SCH ×3 (05:47→20:37)
[2021-04-28] MEDS: LEVOTHYROXINE 75MCG TABLET (0.075MG) PO SCH (05:47)
[2021-04-28 06:00] VITALS: BP 133/67
[2021-04-28] MEDS: ADVAIR HFA 115/21MCG INHALER INH SCH ×2 (08:18→20:34)
[2021-04-28] MEDS: TAMSULOSIN 0.4 MG CAP PO SCH (08:35)
[2021-04-28] MEDS: ESCITALOPRAM OXALATE 10 MG TAB (LEXAPRO) PO SCH (08:35)
[2021-04-28] MEDS: guaiFENesin ER 600 MG TAB PO SCH ×2 (08:35→20:37)
[2021-04-28] MEDS: QUEtiapine FUMARATE 100 MG TAB PO SCH ×3 (08:35→20:37)
[2021-04-28] MEDS: METOPROLOL SUCC *XL* 25MG TAB (TopROL *XL*) PO SCH (08:37)
[2021-04-28] MEDS: amLODIPine 5 MG TAB PO SCH (08:37)
[2021-04-28] MEDS: ACETAMINOPHEN TAB 650MG DOSE (2X325MG) PO PRN (20:37)
[2021-04-28] MEDS: RAMELTEON 8 MG TAB (ROZEREM) PO PRN (20:37)
[2021-04-29] MEDS: HEPARIN SOD (PORCINE) 5000UNITS/ML 1ML VIAL/SYRINGE SC SCH ×3 (05:01→20:22)
[2021-04-29] MEDS: LEVOTHYROXINE 75MCG TABLET (0.075MG) PO SCH (05:01)
[2021-04-29] MEDS: ADVAIR HFA 115/21MCG INHALER INH SCH ×2 (08:00→18:11)
[2021-04-29] MEDS: QUEtiapine FUMARATE 100 MG TAB PO SCH ×3 (08:54→20:22)
[2021-04-29] MEDS: TAMSULOSIN 0.4 MG CAP PO SCH (08:54)
[2021-04-29] MEDS: METOPROLOL SUCC *XL* 25MG TAB (TopROL *XL*) PO SCH (08:54)
[2021-04-29] MEDS: ESCITALOPRAM OXALATE 10 MG TAB (LEXAPRO) PO SCH (08:54)
[2021-04-29] MEDS: guaiFENesin ER 600 MG TAB PO SCH ×2 (08:54→20:22)
[2021-04-29] MEDS: amLODIPine 5 MG TAB PO SCH (08:55)
[2021-04-29] MEDS: ACETAMINOPHEN TAB 650MG DOSE (2X325MG) PO PRN ×2 (15:06→20:22)
[2021-04-29 17:54] LABS: HEMATOCRIT 32.2 % (42.0-52.0); HEMOGLOBIN 10.1 g/dl (13.5-17.5); MEAN CORPUSCULAR HEMOGLOBIN 24.2 pg (27.0-33.0); MEAN CORPUSCULAR HGB CONC 31.4 g/dl (32.0-36.5); MEAN CORPUSCULAR VOLUME 77.2 fl (80.0-96.0); PLATELET COUNT, AUTOMATED 374 10^3/uL (150-450); RED BLOOD COUNT 4.17 10^6/uL (4.30-6.10); WHITE BLOOD COUNT 11.3 10^3/uL (4.0-10.0)
[2021-04-29 18:23] LABS: ALBUMIN 2.5 GM/DL (3.2-5.2); ALT/SGPT 24 U/L (12-78); BILIRUBIN,TOTAL 0.3 MG/DL (0.2-1.0); BLOOD UREA NITROGEN 24 MG/DL (7-18); CALCIUM LEVEL 8.3 MG/DL (8.8-10.2); CARBON DIOXIDE LEVEL 23 MEQ/L (21-32); CHLORIDE LEVEL 105 MEQ/L (98-107); CREATININE FOR GFR 1.17 MG/DL (0.70-1.30); GLOMERULAR FILTRATION RATE > 60.0 (>35); GLUCOSE, FASTING 105 MG/DL (70-100); NT-PRO BNP 132 PG/ML (<450); POTASSIUM SERUM 4.4 MEQ/L (3.5-5.1); SODIUM LEVEL 137 MEQ/L (136-145); TOTAL PROTEIN 6.2 GM/DL (6.4-8.2)
[2021-04-29] MEDS: RAMELTEON 8 MG TAB (ROZEREM) PO PRN (20:22)
[2021-04-30 06:00] VITALS: BP 128/58
[2021-04-30] MEDS: HEPARIN SOD (PORCINE) 5000UNITS/ML 1ML VIAL/SYRINGE SC SCH ×4 (06:00→20:04)
[2021-04-30] MEDS: LEVOTHYROXINE 75MCG TABLET (0.075MG) PO SCH ×2 (06:00→06:16)
[2021-04-30] MEDS: ADVAIR HFA 115/21MCG INHALER INH SCH ×2 (07:37→20:21)
[2021-04-30] MEDS: QUEtiapine FUMARATE 100 MG TAB PO SCH ×3 (08:43→20:05)
[2021-04-30] MEDS: guaiFENesin ER 600 MG TAB PO SCH ×2 (08:44→20:05)
[2021-04-30] MEDS: ESCITALOPRAM OXALATE 10 MG TAB (LEXAPRO) PO SCH (08:44)
[2021-04-30] MEDS: METOPROLOL SUCC *XL* 25MG TAB (TopROL *XL*) PO SCH (08:44)
[2021-04-30] MEDS: TAMSULOSIN 0.4 MG CAP PO SCH (08:44)
[2021-04-30] MEDS: amLODIPine 5 MG TAB PO SCH (08:45)
[2021-04-30 09:27] LABS: HEMATOCRIT 32.9 % (42.0-52.0); HEMOGLOBIN 10.3 g/dl (13.5-17.5); MEAN CORPUSCULAR HEMOGLOBIN 24.3 pg (27.0-33.0); MEAN CORPUSCULAR HGB CONC 31.3 g/dl (32.0-36.5); MEAN CORPUSCULAR VOLUME 77.8 fl (80.0-96.0); PLATELET COUNT, AUTOMATED 362 10^3/uL (150-450); RED BLOOD COUNT 4.23 10^6/uL (4.30-6.10); WHITE BLOOD COUNT 10.9 10^3/uL (4.0-10.0)
[2021-04-30 09:57] LABS: ALBUMIN 2.6 GM/DL (3.2-5.2); ALT/SGPT 20 U/L (12-78); BILIRUBIN,TOTAL 0.3 MG/DL (0.2-1.0); BLOOD UREA NITROGEN 19 MG/DL (7-18); CALCIUM LEVEL 9.1 MG/DL (8.8-10.2); CARBON DIOXIDE LEVEL 24 MEQ/L (21-32); CHLORIDE LEVEL 106 MEQ/L (98-107); CREATININE FOR GFR 1.01 MG/DL (0.70-1.30); GLOMERULAR FILTRATION RATE > 60.0 (>35); GLUCOSE, FASTING 93 MG/DL (70-100); POTASSIUM SERUM 4.2 MEQ/L (3.5-5.1); SODIUM LEVEL 138 MEQ/L (136-145); TOTAL PROTEIN 6.3 GM/DL (6.4-8.2)
[2021-04-30] MEDS: ACETAMINOPHEN TAB 650MG DOSE (2X325MG) PO PRN (20:05)
[2021-04-30] MEDS: RAMELTEON 8 MG TAB (ROZEREM) PO PRN (20:05)
[2021-05-01 05:31] VITALS: BP 129/59
[2021-05-01] MEDS: LEVOTHYROXINE 75MCG TABLET (0.075MG) PO SCH (05:31)
[2021-05-01] MEDS: HEPARIN SOD (PORCINE) 5000UNITS/ML 1ML VIAL/SYRINGE SC SCH ×3 (05:31→21:32)
[2021-05-01] MEDS: ADVAIR HFA 115/21MCG INHALER INH SCH ×2 (07:35→19:36)
[2021-05-01] MEDS: ESCITALOPRAM OXALATE 10 MG TAB (LEXAPRO) PO SCH (09:20)
[2021-05-01] MEDS: QUEtiapine FUMARATE 100 MG TAB PO SCH ×3 (09:20→21:32)
[2021-05-01] MEDS: METOPROLOL SUCC *XL* 25MG TAB (TopROL *XL*) PO SCH (09:20)
[2021-05-01] MEDS: guaiFENesin ER 600 MG TAB PO SCH ×2 (09:20→21:32)
[2021-05-01] MEDS: TAMSULOSIN 0.4 MG CAP PO SCH (09:20)
[2021-05-01] MEDS: amLODIPine 5 MG TAB PO SCH (09:21)
[2021-05-01] MEDS: ACETAMINOPHEN TAB 650MG DOSE (2X325MG) PO PRN (21:33)
[2021-05-01] MEDS: RAMELTEON 8 MG TAB (ROZEREM) PO PRN (21:33)
[2021-05-02 06:00] VITALS: BP 120/66
[2021-05-02] MEDS: LEVOTHYROXINE 75MCG TABLET (0.075MG) PO SCH (06:52)
[2021-05-02] MEDS: HEPARIN SOD (PORCINE) 5000UNITS/ML 1ML VIAL/SYRINGE SC SCH ×3 (06:52→20:34)
[2021-05-02] MEDS: ADVAIR HFA 115/21MCG INHALER INH SCH ×2 (08:00→19:32)
[2021-05-02] MEDS: METOPROLOL SUCC *XL* 25MG TAB (TopROL *XL*) PO SCH (09:13)
[2021-05-02] MEDS: guaiFENesin ER 600 MG TAB PO SCH ×2 (09:13→20:33)
[2021-05-02] MEDS: TAMSULOSIN 0.4 MG CAP PO SCH (09:13)
[2021-05-02] MEDS: ESCITALOPRAM OXALATE 10 MG TAB (LEXAPRO) PO SCH (09:13)
[2021-05-02] MEDS: QUEtiapine FUMARATE 100 MG TAB PO SCH ×3 (09:14→20:33)
[2021-05-02] MEDS: amLODIPine 5 MG TAB PO SCH (09:14)
[2021-05-02] MEDS: ACETAMINOPHEN TAB 650MG DOSE (2X325MG) PO PRN (20:33)
[2021-05-02] MEDS: RAMELTEON 8 MG TAB (ROZEREM) PO PRN (20:33)
[2021-05-03] MEDS: HEPARIN SOD (PORCINE) 5000UNITS/ML 1ML VIAL/SYRINGE SC SCH ×3 (06:37→22:00)
[2021-05-03] MEDS: LEVOTHYROXINE 75MCG TABLET (0.075MG) PO SCH (06:37)
[2021-05-03] MEDS: ADVAIR HFA 115/21MCG INHALER INH SCH ×2 (07:25→20:16)
[2021-05-03] MEDS: QUEtiapine FUMARATE 100 MG TAB PO SCH ×3 (08:56→19:53)
[2021-05-03] MEDS: TAMSULOSIN 0.4 MG CAP PO SCH (08:56)
[2021-05-03] MEDS: ESCITALOPRAM OXALATE 10 MG TAB (LEXAPRO) PO SCH (08:57)
[2021-05-03] MEDS: guaiFENesin ER 600 MG TAB PO SCH ×2 (08:57→19:53)
[2021-05-03] MEDS: amLODIPine 5 MG TAB PO SCH (08:58)
[2021-05-03] MEDS: METOPROLOL SUCC *XL* 25MG TAB (TopROL *XL*) PO SCH (08:58)
[2021-05-03] MEDS: RAMELTEON 8 MG TAB (ROZEREM) PO PRN (19:53)
[2021-05-03] MEDS: ACETAMINOPHEN TAB 650MG DOSE (2X325MG) PO PRN (19:53)
[2021-05-04] MEDS: HEPARIN SOD (PORCINE) 5000UNITS/ML 1ML VIAL/SYRINGE SC SCH ×3 (05:27→20:29)
[2021-05-04] MEDS: LEVOTHYROXINE 75MCG TABLET (0.075MG) PO SCH (05:27)
[2021-05-04 06:00] VITALS: BP 132/64
[2021-05-04] MEDS: TAMSULOSIN 0.4 MG CAP PO SCH (09:26)
[2021-05-04] MEDS: ESCITALOPRAM OXALATE 10 MG TAB (LEXAPRO) PO SCH (09:26)
[2021-05-04] MEDS: guaiFENesin ER 600 MG TAB PO SCH ×2 (09:26→20:28)
[2021-05-04] MEDS: QUEtiapine FUMARATE 100 MG TAB PO SCH ×3 (09:27→20:28)
[2021-05-04] MEDS: METOPROLOL SUCC *XL* 25MG TAB (TopROL *XL*) PO SCH (09:28)
[2021-05-04] MEDS: amLODIPine 5 MG TAB PO SCH (09:28)
[2021-05-04] MEDS: ADVAIR HFA 115/21MCG INHALER INH SCH ×2 (11:31→20:00)
[2021-05-04] MEDS: RAMELTEON 8 MG TAB (ROZEREM) PO PRN (20:28)
[2021-05-04] MEDS: ACETAMINOPHEN TAB 650MG DOSE (2X325MG) PO PRN (20:28)
[2021-05-05] MEDS: LEVOTHYROXINE 75MCG TABLET (0.075MG) PO SCH (05:42)
[2021-05-05] MEDS: HEPARIN SOD (PORCINE) 5000UNITS/ML 1ML VIAL/SYRINGE SC SCH ×3 (05:42→19:59)
[2021-05-05 06:00] VITALS: BP 134/64
[2021-05-05] MEDS: ADVAIR HFA 115/21MCG INHALER INH SCH ×2 (07:19→20:43)
[2021-05-05] MEDS: TAMSULOSIN 0.4 MG CAP PO SCH (09:28)
[2021-05-05] MEDS: ESCITALOPRAM OXALATE 10 MG TAB (LEXAPRO) PO SCH (09:28)
[2021-05-05] MEDS: METOPROLOL SUCC *XL* 25MG TAB (TopROL *XL*) PO SCH (09:28)
[2021-05-05] MEDS: amLODIPine 5 MG TAB PO SCH (09:28)
[2021-05-05] MEDS: QUEtiapine FUMARATE 100 MG TAB PO SCH ×3 (09:29→19:57)
[2021-05-05] MEDS: guaiFENesin ER 600 MG TAB PO SCH ×2 (09:29→19:56)
[2021-05-05] MEDS: ACETAMINOPHEN TAB 650MG DOSE (2X325MG) PO PRN (19:56)
[2021-05-05] MEDS: RAMELTEON 8 MG TAB (ROZEREM) PO PRN (19:56)
[2021-05-06] MEDS: HEPARIN SOD (PORCINE) 5000UNITS/ML 1ML VIAL/SYRINGE SC SCH ×3 (05:46→20:04)
[2021-05-06] MEDS: LEVOTHYROXINE 75MCG TABLET (0.075MG) PO SCH (05:46)
[2021-05-06 06:00] VITALS: BP 125/63
[2021-05-06] MEDS: ADVAIR HFA 115/21MCG INHALER INH SCH ×2 (07:14→20:43)
[2021-05-06 07:35] LABS: HEMATOCRIT 31.7 % (42.0-52.0); HEMOGLOBIN 9.6 g/dl (13.5-17.5); MEAN CORPUSCULAR HEMOGLOBIN 24.1 pg (27.0-33.0); MEAN CORPUSCULAR HGB CONC 30.3 g/dl (32.0-36.5); MEAN CORPUSCULAR VOLUME 79.4 fl (80.0-96.0); PLATELET COUNT, AUTOMATED 371 10^3/uL (150-450); RED BLOOD COUNT 3.99 10^6/uL (4.30-6.10)
[2021-05-06 07:59] LABS: BLOOD UREA NITROGEN 17 MG/DL (7-18); CALCIUM LEVEL 8.5 MG/DL (8.8-10.2); CARBON DIOXIDE LEVEL 25 MEQ/L (21-32); CHLORIDE LEVEL 111 MEQ/L (98-107); CREATININE FOR GFR 0.98 MG/DL (0.70-1.30); GLOMERULAR FILTRATION RATE > 60.0 (>35); GLUCOSE, FASTING 89 MG/DL (70-100); POTASSIUM SERUM 4.3 MEQ/L (3.5-5.1); SODIUM LEVEL 141 MEQ/L (136-145)
[2021-05-06] MEDS: QUEtiapine FUMARATE 100 MG TAB PO SCH ×3 (09:16→20:04)
[2021-05-06] MEDS: guaiFENesin ER 600 MG TAB PO SCH ×2 (09:16→20:04)
[2021-05-06] MEDS: ESCITALOPRAM OXALATE 10 MG TAB (LEXAPRO) PO SCH (09:17)
[2021-05-06] MEDS: METOPROLOL SUCC *XL* 25MG TAB (TopROL *XL*) PO SCH (09:17)
[2021-05-06] MEDS: TAMSULOSIN 0.4 MG CAP PO SCH (09:17)
[2021-05-06] MEDS: amLODIPine 5 MG TAB PO SCH (09:17)
[2021-05-06 16:01] LABS: MAGNESIUM LEVEL 1.7 MG/DL (1.7-2.2)
[2021-05-06] MEDS: ACETAMINOPHEN TAB 650MG DOSE (2X325MG) PO PRN (16:42)
[2021-05-06] MEDS: RAMELTEON 8 MG TAB (ROZEREM) PO PRN (20:04)
[2021-05-07 06:00] VITALS: BP 104/62
[2021-05-07] MEDS: LEVOTHYROXINE 75MCG TABLET (0.075MG) PO SCH (06:47)
[2021-05-07] MEDS: HEPARIN SOD (PORCINE) 5000UNITS/ML 1ML VIAL/SYRINGE SC SCH ×3 (06:47→20:35)
[2021-05-07] MEDS: ADVAIR HFA 115/21MCG INHALER INH SCH ×2 (07:38→20:40)
[2021-05-07] MEDS: METOPROLOL SUCC *XL* 25MG TAB (TopROL *XL*) PO SCH ×2 (09:00→09:17)
[2021-05-07] MEDS: amLODIPine 5 MG TAB PO SCH ×2 (09:00→09:17)
[2021-05-07] MEDS: TAMSULOSIN 0.4 MG CAP PO SCH (09:17)
[2021-05-07] MEDS: ESCITALOPRAM OXALATE 10 MG TAB (LEXAPRO) PO SCH (09:18)
[2021-05-07] MEDS: guaiFENesin ER 600 MG TAB PO SCH ×2 (09:18→20:34)
[2021-05-07] MEDS: QUEtiapine FUMARATE 100 MG TAB PO SCH ×3 (09:18→20:34)
[2021-05-07] MEDS: ACETAMINOPHEN TAB 650MG DOSE (2X325MG) PO PRN (20:34)
[2021-05-07] MEDS: RAMELTEON 8 MG TAB (ROZEREM) PO PRN (20:35)
[2021-05-08 01:32] VITALS: BP 138/71
[2021-05-08] MEDS: HEPARIN SOD (PORCINE) 5000UNITS/ML 1ML VIAL/SYRINGE SC SCH ×3 (06:39→20:37)
[2021-05-08] MEDS: LEVOTHYROXINE 75MCG TABLET (0.075MG) PO SCH (06:39)
[2021-05-08] MEDS: ADVAIR HFA 115/21MCG INHALER INH SCH ×2 (07:36→22:58)
[2021-05-08] MEDS: QUEtiapine FUMARATE 100 MG TAB PO SCH ×3 (09:24→20:37)
[2021-05-08] MEDS: TAMSULOSIN 0.4 MG CAP PO SCH (09:25)
[2021-05-08] MEDS: amLODIPine 5 MG TAB PO SCH (09:25)
[2021-05-08] MEDS: METOPROLOL SUCC *XL* 25MG TAB (TopROL *XL*) PO SCH (09:25)
[2021-05-08] MEDS: ESCITALOPRAM OXALATE 10 MG TAB (LEXAPRO) PO SCH (09:25)
[2021-05-08] MEDS: guaiFENesin ER 600 MG TAB PO SCH ×2 (09:25→20:37)
[2021-05-08] MEDS: ACETAMINOPHEN TAB 650MG DOSE (2X325MG) PO PRN (20:36)
[2021-05-08] MEDS: RAMELTEON 8 MG TAB (ROZEREM) PO PRN (20:37)
[2021-05-09 06:00] VITALS: BP 129/64
[2021-05-09] MEDS: LEVOTHYROXINE 75MCG TABLET (0.075MG) PO SCH (06:58)
[2021-05-09] MEDS: HEPARIN SOD (PORCINE) 5000UNITS/ML 1ML VIAL/SYRINGE SC SCH ×3 (06:58→21:58)
[2021-05-09] MEDS: ADVAIR HFA 115/21MCG INHALER INH SCH ×2 (07:09→17:44)
[2021-05-09] MEDS: guaiFENesin ER 600 MG TAB PO SCH ×2 (09:33→21:59)
[2021-05-09] MEDS: TAMSULOSIN 0.4 MG CAP PO SCH (09:33)
[2021-05-09] MEDS: QUEtiapine FUMARATE 100 MG TAB PO SCH ×3 (09:33→21:59)
[2021-05-09] MEDS: ESCITALOPRAM OXALATE 10 MG TAB (LEXAPRO) PO SCH (09:35)
[2021-05-09] MEDS: METOPROLOL SUCC *XL* 25MG TAB (TopROL *XL*) PO SCH (09:36)
[2021-05-09] MEDS: amLODIPine 5 MG TAB PO SCH (09:36)
[2021-05-09 09:50] VITALS: BP 116/50
[2021-05-09] MEDS: ACETAMINOPHEN TAB 650MG DOSE (2X325MG) PO PRN (21:58)
[2021-05-09] MEDS: RAMELTEON 8 MG TAB (ROZEREM) PO PRN (21:59)
[2021-05-10 06:00] VITALS: BP 126/57
[2021-05-10] MEDS: LEVOTHYROXINE 75MCG TABLET (0.075MG) PO SCH (06:34)
[2021-05-10] MEDS: HEPARIN SOD (PORCINE) 5000UNITS/ML 1ML VIAL/SYRINGE SC SCH ×3 (06:34→20:53)
[2021-05-10] MEDS: ADVAIR HFA 115/21MCG INHALER INH SCH ×2 (08:56→17:30)
[2021-05-10] MEDS: amLODIPine 5 MG TAB PO SCH (09:00)
[2021-05-10] MEDS: METOPROLOL SUCC *XL* 25MG TAB (TopROL *XL*) PO SCH (09:00)
[2021-05-10 09:10] VITALS: BP 106/52
[2021-05-10] MEDS: QUEtiapine FUMARATE 100 MG TAB PO SCH ×3 (09:13→20:53)
[2021-05-10] MEDS: ESCITALOPRAM OXALATE 10 MG TAB (LEXAPRO) PO SCH (09:13)
[2021-05-10] MEDS: guaiFENesin ER 600 MG TAB PO SCH ×2 (09:13→20:53)
[2021-05-10] MEDS: TAMSULOSIN 0.4 MG CAP PO SCH (09:13)
[2021-05-10] MEDS: ACETAMINOPHEN TAB 650MG DOSE (2X325MG) PO PRN ×2 (12:52→20:53)
[2021-05-10] MEDS: RAMELTEON 8 MG TAB (ROZEREM) PO PRN (20:53)
[2021-05-11] MEDS: LEVOTHYROXINE 75MCG TABLET (0.075MG) PO SCH (05:14)
[2021-05-11] MEDS: HEPARIN SOD (PORCINE) 5000UNITS/ML 1ML VIAL/SYRINGE SC SCH (05:14)
[2021-05-11 05:40] VITALS: BP 107/57
[2021-05-11] MEDS: ADVAIR HFA 115/21MCG INHALER INH SCH (07:54)
[2021-05-11] MEDS: ACETAMINOPHEN TAB 650MG DOSE (2X325MG) PO PRN (09:16)
[2021-05-11] MEDS: guaiFENesin ER 600 MG TAB PO SCH (09:16)
[2021-05-11] MEDS: TAMSULOSIN 0.4 MG CAP PO SCH (09:18)
[2021-05-11] MEDS: ESCITALOPRAM OXALATE 10 MG TAB (LEXAPRO) PO SCH (09:18)
[2021-05-11] MEDS: amLODIPine 5 MG TAB PO SCH (09:18)
[2021-05-11 09:19] VITALS: BP 119/61
[2021-05-11] MEDS: METOPROLOL SUCC *XL* 25MG TAB (TopROL *XL*) PO SCH (09:19)
[2021-05-11] MEDS: QUEtiapine FUMARATE 100 MG TAB PO SCH (09:19)
[2021-05-11] MEDS ORDERED: LEVO75TA4 PO (10:33)
[2021-05-11] MEDS ORDERED: MUCI600T31 PO (10:33)
== END 2021-05-11 11:15 | DRG 177 ==
LOC: M ED 11:00 → M ED INP 15:14 → ENRESERV 16:15 → M 4MAIN 17:06 → OBSVTOIN 04-12 09:45 → M 4MAIN 04-15 10:14 → M MS5PR 04-22 16:18
PROVIDERS: ADMIT Internal Medicine; ATTEND Internal Medicine
DX: U07.1 COVID-19 (principal); J18.9 Pneumonia, unspecified organism; I50.32 Chronic diastolic (congestive) heart failure; I13.0 Hypertensive heart and chronic kidney disease with heart failure and stage 1 through stage 4 chronic kidney disease, or unspecified chronic kidney disease; R55 Syncope and collapse; J45.909 Unspecified asthma, uncomplicated; F41.9 Anxiety disorder, unspecified; N40.0 Benign prostatic hyperplasia without lower urinary tract symptoms; K21.9 Gastro-esophageal reflux disease without esophagitis; F03.90 Unspecified dementia, unspecified severity, without behavioral disturbance, psychotic disturbance, mood disturbance, and anxiety; R26.81 Unsteadiness on feet; Z66 Do not resuscitate; H02.402 Unspecified ptosis of left eyelid; D64.9 Anemia, unspecified; N18.30 Chronic kidney disease, stage 3 unspecified; E03.9 Hypothyroidism, unspecified; Z79.899 Other long term (current) drug therapy; Z88.8 Allergy status to other drugs, medicaments and biological substances

== ENCOUNTER → 2021-05-14 | Outpatient (REF) | payer MEDICARE, MEDICAID ==
[~2021-05-14] MED LIST changes: +ACET1TAB55 PO; +AMLO25TA PO; +ATIV1TAB10 PO; +BREO1INH INH; +DULC10SU2 PR; +FLEEENE12 PR; +HYOS125TA PO; +LEVO75TA4 PO; +LEXA1TAB2 PO; +MACR100C43 PO; +MILKSUS3 PO; +MORP1SOL5 PO; +MUCI600T31 PO; +QUET100T2 PO; +QUET50TA4 PO; +TAMS1CAP17 PO; +TOPR25TA PO; +TRAM50TA2 PO
[2021-05-14 08:55] LABS: HEMATOCRIT 34.8 % (42.0-52.0); HEMOGLOBIN 10.5 g/dl (13.5-17.5); MEAN CORPUSCULAR HEMOGLOBIN 24.3 pg (27.0-33.0); MEAN CORPUSCULAR HGB CONC 30.2 g/dl (32.0-36.5); MEAN CORPUSCULAR VOLUME 80.6 fl (80.0-96.0); PLATELET COUNT, AUTOMATED 309 10^3/uL (150-450); RED BLOOD COUNT 4.32 10^6/uL (4.30-6.10); WHITE BLOOD COUNT 7.7 10^3/uL (4.0-10.0)
[2021-05-14 09:26] LABS: ALT/SGPT 22 U/L (12-78); BILIRUBIN,TOTAL 0.4 MG/DL (0.2-1.0); BLOOD UREA NITROGEN 20 MG/DL (7-18); CALCIUM LEVEL 8.7 MG/DL (8.8-10.2); CARBON DIOXIDE LEVEL 27 MEQ/L (21-32); CHLORIDE LEVEL 107 MEQ/L (98-107); CREATININE FOR GFR 1.05 MG/DL (0.70-1.30); GLOMERULAR FILTRATION RATE > 60.0 (>35); GLUCOSE, FASTING 79 MG/DL (70-100); POTASSIUM SERUM 4.6 MEQ/L (3.5-5.1); SODIUM LEVEL 140 MEQ/L (136-145); TOTAL PROTEIN 5.8 GM/DL (6.4-8.2)
== END ==
LOC: SKLAB8 07:00
PROVIDERS: ATTEND Neuromusculoskeletal Medicine & OMM
DX: F03.90 Unspecified dementia, unspecified severity, without behavioral disturbance, psychotic disturbance, mood disturbance, and anxiety (principal)

== ENCOUNTER → 2021-05-17 | Outpatient (REF) | payer MEDICARE, MEDICAID ==
[~2021-05-17] MED LIST changes: -ACET1TAB55 PO; -ATIV1TAB10 PO; -DULC10SU2 PR; -FLEEENE12 PR; -HYOS125TA PO; -MACR100C43 PO; -MILKSUS3 PO; -MORP1SOL5 PO; -QUET50TA4 PO; -TAMS1CAP17 PO
[2021-05-17 14:26] LABS: BLOOD UREA NITROGEN 24 MG/DL (7-18); CALCIUM LEVEL 8.5 MG/DL (8.8-10.2); CARBON DIOXIDE LEVEL 28 MEQ/L (21-32); CHLORIDE LEVEL 102 MEQ/L (98-107); CREATININE FOR GFR 1.08 MG/DL (0.70-1.30); GLOMERULAR FILTRATION RATE > 60.0 (>35); GLUCOSE, FASTING 115 MG/DL (70-100); SODIUM LEVEL 135 MEQ/L (136-145)
== END ==
LOC: SKLAB8 07:00
PROVIDERS: ATTEND Neuromusculoskeletal Medicine & OMM
DX: F03.90 Unspecified dementia, unspecified severity, without behavioral disturbance, psychotic disturbance, mood disturbance, and anxiety (principal)

== ENCOUNTER → 2021-05-18 | Outpatient (REF) | payer MEDICARE, MEDICAID ==
[2021-05-18 15:44] LABS: HEMATOCRIT 29.7 % (42.0-52.0); HEMOGLOBIN 9.2 g/dl (13.5-17.5); MEAN CORPUSCULAR VOLUME 77.5 fl (80.0-96.0); PLATELET COUNT, AUTOMATED 248 10^3/uL (150-450); RED BLOOD COUNT 3.83 10^6/uL (4.30-6.10); WHITE BLOOD COUNT 6.7 10^3/uL (4.0-10.0)
[2021-05-18 16:18] LABS: FREE T4 0.95 NG/DL (0.76-1.46); THYROID STIMULATING HORMONE 0.455 uIU/ML (0.358-3.740)
== END ==
LOC: SKLAB8 14:21
PROVIDERS: ATTEND Neuromusculoskeletal Medicine & OMM
DX: R50.9 Fever, unspecified (principal); R00.0 Tachycardia, unspecified

== ENCOUNTER → 2021-05-19 | Outpatient (REF) ==
[2021-05-19 15:29] LABS: APPEARANCE, URINE HAZY (CLEAR); BACTERIA, URINE AUTO 1+ (NEGATIVE); BILIRUBIN, URINE AUTO NEGATIVE (NEGATIVE); BLOOD, URINE BLOOD 2+ (NEGATIVE); COLOR, URINE YELLOW (YELLOW); GLUCOSE, URINE (UA) AUTO NEGATIVE (NEGATIVE); KETONE, URINE AUTO TRACE mg/dL (NEGATIVE); LEUKOCYTE ESTERASE, URINE AUTO 2+ (NEGATIVE); MUCUS, URINE SMALL (NEGATIVE); NITRITE, URINE AUTO NEGATIVE (NEGATIVE); PROTEIN, URINE AUTO NEGATIVE (NEGATIVE); RBC, URINE AUTO 151 /HPF (0-3); SPECIFIC GRAVITY URINE AUTO 1.018 (1.002-1.035); SQUAMOUS EPITHELIAL CELL UR AU 0 /HPF (0-6); UROBILINOGEN, URINE AUTO 0.2 mg/dL (0.0-2.0); WBC, URINE AUTO 23 /HPF (0-3)
== END ==
LOC: SKLAB8 14:15
PROVIDERS: ATTEND Physician Assistant
DX: R41.0 Disorientation, unspecified (principal)

== ENCOUNTER 2021-05-22 14:38 | Inpatient (IN) | payer MEDICARE, MEDICAID ==
[~2021-05-22] VITALS: Ht 177.8 cm; Wt 72.4 kg
[2021-05-22] MEDS: NS 1,000 ML IV SCH
[~2021-05-22 14:38] MED LIST changes: -ACET1TAB55 PO; -ACETAMINOPHEN TAB 650MG DOSE (2X325MG) PO PRN; -DOCUSATE SODIUM 100MG CAPSULE PO SCH; -DULC10SU2 PR; -FLEEENE12 PR; -HEPARIN SOD (PORCINE) 5000UNITS/ML 1ML VIAL/SYRINGE SC SCH; -MAALOX 30 ML SUSP *UDC PO PRN; -MACR100C43 PO; -MILKSUS3 PO; -MOM 30ML SUSPENSION UDC PO PRN; -PIPERACILLIN/TAZOBACTAM SOD 3.375 GM in D5W MINI-BAG PLUS 50 ML IV SCH; -QUET50TA4 PO; -TAMS1CAP17 PO; -VANCOMYCIN HCL 1,000 MG in IV FLUID PLACE HOLDER 1 EA IV SCH
[2021-05-22 15:43] LABS: HEMATOCRIT 31.2 % (42.0-52.0); HEMOGLOBIN 9.8 g/dl (13.5-17.5); MEAN CORPUSCULAR HEMOGLOBIN 24.3 pg (27.0-33.0); MEAN CORPUSCULAR HGB CONC 31.4 g/dl (32.0-36.5); MEAN CORPUSCULAR VOLUME 77.2 fl (80.0-96.0); PLATELET COUNT, AUTOMATED 166 10^3/uL (150-450); RED BLOOD COUNT 4.04 10^6/uL (4.30-6.10); WHITE BLOOD COUNT 2.5 10^3/uL (4.0-10.0)
[2021-05-22] MEDS ORDERED: ACETAMINOPHEN 650 MG SUPP PR ONE (16:10)
[2021-05-22 16:19] LABS: ALBUMIN 2.4 GM/DL (3.2-5.2); ALT/SGPT 481 U/L (12-78); BILIRUBIN,DIRECT 0.1 MG/DL (0.0-0.2); BILIRUBIN,TOTAL 0.3 MG/DL (0.2-1.0); BLOOD UREA NITROGEN 37 MG/DL (7-18); CALCIUM LEVEL 7.6 MG/DL (8.8-10.2); CARBON DIOXIDE LEVEL 24 MEQ/L (21-32); CHLORIDE LEVEL 104 MEQ/L (98-107); CREATININE FOR GFR 1.21 MG/DL (0.70-1.30); GLOMERULAR FILTRATION RATE > 60.0 (>35); GLUCOSE, FASTING 125 MG/DL (70-100); POTASSIUM SERUM 4.2 MEQ/L (3.5-5.1); SODIUM LEVEL 137 MEQ/L (136-145); THYROID STIMULATING HORMONE 0.396 uIU/ML (0.358-3.740); TOTAL PROTEIN 5.4 GM/DL (6.4-8.2)
[2021-05-22 16:35] LABS: LYMPHOCYTES 27 % (16-44); MONOCYTES 2 % (0-5); NEUTROPHILS 71 % (28-66); PLATELET ESTIMATE NORMAL (NORMAL)
[2021-05-22] MEDS ORDERED: ISOVUE-370 76% 100ML VIAL As Ordered ONE (16:42)
[2021-05-22 16:53] LABS: LIPASE 504 U/L (73-393)
[2021-05-22] MEDS ORDERED: NS 1,000 ML IV SCH (17:20)
[2021-05-22] MEDS ORDERED: METO1TAB32 PO (17:41)
[2021-05-22] MEDS ORDERED: LEXA1TAB2 PO (17:41)
[2021-05-22] MEDS ORDERED: LEVO75TA4 PO (17:41)
[2021-05-22] MEDS ORDERED: TAMS1CAP17 PO (17:41)
[2021-05-22] MEDS ORDERED: QUET50TA4 PO (17:41)
[2021-05-22] MEDS ORDERED: MACR100C43 PO (17:41)
[2021-05-22] MEDS ORDERED: BREO1INH INH (17:45)
[2021-05-22] MEDS ORDERED: ACET1TAB55 PO (17:45)
[2021-05-22] MEDS ORDERED: MILKSUS3 PO (17:45)
[2021-05-22] MEDS ORDERED: DULC10SU2 PR (17:45)
[2021-05-22] MEDS ORDERED: FLEEENE12 PR (17:45)
[2021-05-22] MEDS ORDERED: HOME MED LIST COMPLETE! XX SCH (17:50)
[2021-05-22 18:06] LABS: ACETAMINOPHEN LEVEL < 2.0 UG/ML (10.0-30.0)
[2021-05-22] MEDS ORDERED: ACETAMINOPHEN TAB 650MG DOSE (2X325MG) PO PRN (18:40)
[2021-05-22] MEDS ORDERED: MOM 30ML SUSPENSION UDC PO PRN (18:40)
[2021-05-22] MEDS ORDERED: MAALOX 30 ML SUSP *UDC PO PRN (18:40)
[2021-05-22] MEDS ORDERED: VANCOMYCIN HCL 1,000 MG in IV FLUID PLACE HOLDER 1 EA IV SCH (18:45)
[2021-05-22] MEDS ORDERED: SODIUM CHLORIDE 0.9% 1000ML IV STA (19:16)
[2021-05-22] MEDS ORDERED: ALBUTEROL SULFATE 2.5 MG/0.5 ML INH NEB SOLN NEB PRN (19:50)
[2021-05-22 20:21] LABS: PROTHROMBIN TIME 13.6 SECONDS (12.7-14.5)
[2021-05-22 21:23] LABS: HEPATITIS B CORE ANTIBODY IGM NEGATIVE (NEGATIVE); HEPATITIS B SURFACE ANTIGEN NEGATIVE (NEGATIVE); HEPATITIS C VIRUS ABY INDEX 0.1 INDEX (<0.8)
[2021-05-22 21:40] VITALS: BP 108/56
[2021-05-22] MEDS: PIPERACILLIN/TAZOBACTAM SOD 3.375 GM in D5W MINI-BAG PLUS 50 ML IV SCH (22:00)
[2021-05-22] MEDS ORDERED: VANCOMYCIN HCL 750 MG, VIAL MATE ADAPTER 1 EACH in NS 250 ML IV ONE ×2 (22:00→23:00)
[2021-05-23] VITALS (9 sets, daily range): BP systolic 112–180; BP diastolic 53–73; O2SAT 95–97
[2021-05-23 05:13] LABS: HEMATOCRIT 32.1 % (42.0-52.0); HEMOGLOBIN 9.7 g/dl (13.5-17.5); MEAN CORPUSCULAR HEMOGLOBIN 24.3 pg (27.0-33.0); MEAN CORPUSCULAR HGB CONC 30.2 g/dl (32.0-36.5); MEAN CORPUSCULAR VOLUME 80.3 fl (80.0-96.0); PLATELET COUNT, AUTOMATED 148 10^3/uL (150-450); WHITE BLOOD COUNT 2.6 10^3/uL (4.0-10.0)
[2021-05-23 05:33] LABS: ANISOCYTOSIS 2+; ATYPICAL LYMPH 3 % (0-5); LYMPHOCYTES 29 % (16-44); MONOCYTES 7 % (0-5); NEUTROPHILS 61 % (28-66); PLATELET ESTIMATE NORMAL (NORMAL); POIKILOCYTOSIS 2+
[2021-05-23 05:34] LABS: ALBUMIN 2.1 GM/DL (3.2-5.2); ALT/SGPT 484 U/L (12-78); BILIRUBIN,TOTAL 0.3 MG/DL (0.2-1.0); BLOOD UREA NITROGEN 38 MG/DL (7-18); CALCIUM LEVEL 7.6 MG/DL (8.8-10.2); CARBON DIOXIDE LEVEL 21 MEQ/L (21-32); CHLORIDE LEVEL 110 MEQ/L (98-107); CREATININE FOR GFR 1.18 MG/DL (0.70-1.30); GLOMERULAR FILTRATION RATE > 60.0 (>35); GLUCOSE, FASTING 95 MG/DL (70-100); MAGNESIUM LEVEL 2.3 MG/DL (1.8-2.4); SODIUM LEVEL 138 MEQ/L (136-145); TOTAL PROTEIN 5.4 GM/DL (6.4-8.2)
[2021-05-23 05:35] LABS: BURR CELLS 1+; OVALOCYTES 2+
[2021-05-23] MEDS: LEVOTHYROXINE 75MCG TABLET (0.075MG) PO SCH (06:00)
[2021-05-23] MEDS: ADVAIR HFA 115/21MCG INHALER INH SCH ×2 (07:57→20:00)
[2021-05-23] MEDS: NS 1,000 ML IV SCH ×2 (08:39→09:34)
[2021-05-23] MEDS: TAMSULOSIN 0.4 MG CAP PO SCH ×2 (08:40→13:15)
[2021-05-23] MEDS: PIPERACILLIN/TAZOBACTAM SOD 3.375 GM in D5W MINI-BAG PLUS 50 ML IV SCH (08:40)
[2021-05-23] MEDS: METOPROLOL SUCC *XL* 25MG TAB (TopROL *XL*) PO SCH ×2 (08:40→13:15)
[2021-05-23] MEDS: HEPARIN SOD (PORCINE) 5000UNITS/ML 1ML VIAL/SYRINGE SC SCH (08:41)
[2021-05-23] MEDS: ACETAMINOPHEN 650 MG SUPP PR PRN ×3 (09:35→21:13)
[2021-05-23] MEDS ORDERED: MEROPENEM INJ 2 GM in NS 100 ML IV SCH (11:40)
[2021-05-23] MEDS: MEROPENEM INJ 1 GM in IV 1 EA IV SCH ×4 (12:17→21:59)
[2021-05-23 12:37] LABS: THYROID STIMULATING HORMONE 0.461 uIU/ML (0.358-3.740); THYROXINE (T4) 5.9 UG/DL (4.5-12.0)
[2021-05-23 13:58] LABS: FREE THYROXINE INDEX 1.9 % (1.4-3.8)
[2021-05-23] MEDS ORDERED: VANCOMYCIN HCL 1,000 MG, VIAL MATE ADAPTER 1 EACH in NS 250 ML IV SCH (14:00)
[2021-05-23] MEDS ORDERED: PIPERACILLIN/TAZOBACTAM SOD 3.375 GM in D5W MINI-BAG PLUS 50 ML IV SCH (14:00)
[2021-05-23] MEDS: ACYCLOVIR IV SCH ×3 (15:20→23:11)
[2021-05-23] MEDS: NS IV SCH ×3 (15:20→23:11)
[2021-05-23] MEDS ORDERED: PIPERACILLIN/TAZOBACTAM SOD 4.5 GM in D5W MINI-BAG PLUS 50 ML IV SCH (17:10)
[2021-05-24] VITALS (11 sets, daily range): BP systolic 134–160; BP diastolic 62–83; O2SAT 95–100
[2021-05-24] MEDS: NS 1,000 ML IV SCH (01:07)
[2021-05-24] MEDS: MEROPENEM INJ 1 GM in IV 1 EA IV SCH ×4 (04:43→13:30)
[2021-05-24] MEDS: ACETAMINOPHEN 650 MG SUPP PR PRN ×4 (05:00→22:43)
[2021-05-24 05:03] LABS: HEMATOCRIT 29.4 % (42.0-52.0); HEMOGLOBIN 9.1 g/dl (13.5-17.5); MEAN CORPUSCULAR HEMOGLOBIN 24.2 pg (27.0-33.0); MEAN CORPUSCULAR VOLUME 78.2 fl (80.0-96.0); PLATELET COUNT, AUTOMATED 171 10^3/uL (150-450); RED BLOOD COUNT 3.76 10^6/uL (4.30-6.10); WHITE BLOOD COUNT 2.2 10^3/uL (4.0-10.0)
[2021-05-24 05:30] LABS: ALT/SGPT 545 U/L (12-78); BILIRUBIN,TOTAL 0.5 MG/DL (0.2-1.0); BLOOD UREA NITROGEN 29 MG/DL (7-18); CALCIUM LEVEL 7.1 MG/DL (8.8-10.2); CARBON DIOXIDE LEVEL 22 MEQ/L (21-32); CHLORIDE LEVEL 116 MEQ/L (98-107); CREATININE FOR GFR 1.04 MG/DL (0.70-1.30); GLOMERULAR FILTRATION RATE > 60.0 (>35); GLUCOSE, FASTING 89 MG/DL (70-100); POTASSIUM SERUM 4.2 MEQ/L (3.5-5.1); SODIUM LEVEL 143 MEQ/L (136-145); TOTAL PROTEIN 4.6 GM/DL (6.4-8.2)
[2021-05-24 05:43] LABS: ANISOCYTOSIS 2+; ATYPICAL LYMPH 9 % (0-5); LYMPHOCYTES 22 % (16-44); MONOCYTES 7 % (0-5); MYELOCYTES 3 % (0-0); NEUTROPHILS 59 % (28-66); OVALOCYTES 1+; PLATELET ESTIMATE NORMAL (NORMAL); POIKILOCYTOSIS 1+
[2021-05-24 05:44] LABS: MICROCYTOSIS 1+
[2021-05-24] MEDS: NS IV SCH ×3 (06:30→23:21)
[2021-05-24] MEDS: LEVOTHYROXINE 75MCG TABLET (0.075MG) PO SCH (06:30)
[2021-05-24] MEDS: ACYCLOVIR IV SCH ×3 (06:30→23:21)
[2021-05-24] MEDS: ADVAIR HFA 115/21MCG INHALER INH SCH ×2 (07:53→20:00)
[2021-05-24 09:35] LABS: IRON (FE) 18 UG/DL (65-175); PERCENT SATURATION 14.3 % (19.7-50.0); TOTAL IRON BINDING CAPACITY 126 UG/DL (250-450)
[2021-05-24] MEDS: IBUPROFEN 600MG TAB PO ONE ×2 (10:16→10:26)
[2021-05-24] MEDS: TAMSULOSIN 0.4 MG CAP PO SCH ×2 (10:18→10:27)
[2021-05-24] MEDS: METOPROLOL SUCC *XL* 25MG TAB (TopROL *XL*) PO SCH ×2 (10:19→10:27)
[2021-05-24 12:21] LABS: CSF TUBE# GLU TUBE 2; CSF TUBE# TP TUBE 2; GLUCOSE CSF 46 MG/DL (40-75); TOTAL PROTEIN,CSF 58 MG/DL (15-45)
[2021-05-24 12:22] LABS: APPEARANCE, CSF CLEAR (CLEAR); COLOR, CSF COLORLESS (COLORLESS); CSF TUBE# CELL CNT TUBE 1
[2021-05-24 12:23] LABS: COLOR, CSF COLORLESS (COLORLESS); CSF TUBE# CELL CNT TUBE 1
[2021-05-24 12:24] LABS: APPEARANCE, CSF CLEAR (CLEAR)
[2021-05-24 20:07] LABS: ANA (HEP2) Negative (.); ANTINUCLEAR ANTIBODIES DIRECT Negative (Negative)
[2021-05-25] VITALS (15 sets, daily range): BP systolic 106–161; BP diastolic 57–78; O2SAT 95–99
[2021-05-25 04:45] LABS: HEMATOCRIT 28.7 % (42.0-52.0); HEMOGLOBIN 8.8 g/dl (13.5-17.5); MEAN CORPUSCULAR HGB CONC 30.7 g/dl (32.0-36.5); MEAN CORPUSCULAR VOLUME 78.2 fl (80.0-96.0); PLATELET COUNT, AUTOMATED 179 10^3/uL (150-450); RED BLOOD COUNT 3.67 10^6/uL (4.30-6.10); WHITE BLOOD COUNT 2.8 10^3/uL (4.0-10.0)
[2021-05-25 05:08] LABS: ALT/SGPT 441 U/L (12-78); BILIRUBIN,TOTAL 0.3 MG/DL (0.2-1.0); BLOOD UREA NITROGEN 29 MG/DL (7-18); CALCIUM LEVEL 7.6 MG/DL (8.8-10.2); CARBON DIOXIDE LEVEL 25 MEQ/L (21-32); CHLORIDE LEVEL 122 MEQ/L (98-107); CREATININE FOR GFR 1.03 MG/DL (0.70-1.30); GLOMERULAR FILTRATION RATE > 60.0 (>35); GLUCOSE, FASTING 89 MG/DL (70-100); MAGNESIUM LEVEL 2.2 MG/DL (1.8-2.4); POTASSIUM SERUM 4.4 MEQ/L (3.5-5.1); SODIUM LEVEL 151 MEQ/L (136-145); TOTAL PROTEIN 4.7 GM/DL (6.4-8.2)
[2021-05-25 05:18] LABS: ANISOCYTOSIS 2+; ATYPICAL LYMPH 10 % (0-5); EOSINOPHILS 1 % (0-3); LYMPHOCYTES 29 % (16-44); MONOCYTES 5 % (0-5); MYELOCYTES 3 % (0-0); NEUTROPHILS 51 % (28-66); PLATELET ESTIMATE NORMAL (NORMAL); POIKILOCYTOSIS 2+
[2021-05-25 05:19] LABS: OVALOCYTES 1+
[2021-05-25 05:20] LABS: BURR CELLS 1+; MICROCYTOSIS 1+
[2021-05-25] MEDS ORDERED: NS 0.45% 1,000 ML IV SCH (05:40)
[2021-05-25] MEDS: LEVOTHYROXINE 75MCG TABLET (0.075MG) PO SCH (06:00)
[2021-05-25] MEDS: NS IV SCH ×3 (06:35→22:54)
[2021-05-25] MEDS: ACYCLOVIR IV SCH ×3 (06:35→22:54)
[2021-05-25] MEDS: D5W/0.9% SODIUM CHLORIDE 1,000 ML IV SCH ×3 (07:27→23:09)
[2021-05-25] MEDS: ADVAIR HFA 115/21MCG INHALER INH SCH ×2 (07:32→20:00)
[2021-05-25] MEDS: TAMSULOSIN 0.4 MG CAP PO SCH ×2 (09:00→09:04)
[2021-05-25] MEDS: METOPROLOL SUCC *XL* 25MG TAB (TopROL *XL*) PO SCH ×2 (09:00→09:03)
[2021-05-25] MEDS: HEPARIN SOD (PORCINE) 5000UNITS/ML 1ML VIAL/SYRINGE SC SCH ×2 (09:03→20:14)
[2021-05-25] MEDS: ACETAMINOPHEN 650 MG SUPP PR PRN ×2 (09:47→18:34)
[2021-05-25] MEDS ORDERED: LIDOCAINE 1% MDV 20ML VIAL As Ordered ONE (10:46)
[2021-05-25 11:00] LABS: BLOOD UREA NITROGEN 26 MG/DL (7-18); CALCIUM LEVEL 7.8 MG/DL (8.8-10.2); CARBON DIOXIDE LEVEL 20 MEQ/L (21-32); CHLORIDE LEVEL 121 MEQ/L (98-107); CREATININE FOR GFR 1.01 MG/DL (0.70-1.30); GLOMERULAR FILTRATION RATE > 60.0 (>35); GLUCOSE, FASTING 101 MG/DL (70-100); SODIUM LEVEL 149 MEQ/L (136-145)
[2021-05-25] MEDS ORDERED: SODIUM CHLORIDE 0.9% INJ 10 ML SYR IV PRN (13:00)
[2021-05-25 15:39] LABS: BLOOD UREA NITROGEN 24 MG/DL (7-18); CALCIUM LEVEL 7.6 MG/DL (8.8-10.2); CARBON DIOXIDE LEVEL 21 MEQ/L (21-32); CHLORIDE LEVEL 123 MEQ/L (98-107); CREATININE FOR GFR 0.94 MG/DL (0.70-1.30); GLOMERULAR FILTRATION RATE > 60.0 (>35); GLUCOSE, FASTING 108 MG/DL (70-100); POTASSIUM SERUM 3.5 MEQ/L (3.5-5.1); SODIUM LEVEL 149 MEQ/L (136-145)
[2021-05-25 21:48] LABS: BLOOD UREA NITROGEN 25 MG/DL (7-18); CALCIUM LEVEL 7.3 MG/DL (8.8-10.2); CARBON DIOXIDE LEVEL 25 MEQ/L (21-32); CHLORIDE LEVEL 124 MEQ/L (98-107); CREATININE FOR GFR 0.96 MG/DL (0.70-1.30); GLOMERULAR FILTRATION RATE > 60.0 (>35); GLUCOSE, FASTING 130 MG/DL (70-100); POTASSIUM SERUM 3.6 MEQ/L (3.5-5.1); SODIUM LEVEL 153 MEQ/L (136-145)
[2021-05-26] VITALS (22 sets, daily range): BP systolic 120–161; BP diastolic 55–90; O2SAT 95–96
[2021-05-26] MEDS: D5W/0.9% SODIUM CHLORIDE 1,000 ML IV SCH (03:19)
[2021-05-26] MEDS: LEVOTHYROXINE 75MCG TABLET (0.075MG) PO SCH (05:04)
[2021-05-26 05:12] LABS: HEMATOCRIT 24.2 % (42.0-52.0); HEMOGLOBIN 7.3 g/dl (13.5-17.5); MEAN CORPUSCULAR HGB CONC 30.2 g/dl (32.0-36.5); MEAN CORPUSCULAR VOLUME 79.6 fl (80.0-96.0); PLATELET COUNT, AUTOMATED 197 10^3/uL (150-450); RED BLOOD COUNT 3.04 10^6/uL (4.30-6.10); WHITE BLOOD COUNT 3.6 10^3/uL (4.0-10.0)
[2021-05-26] MEDS: NS IV SCH ×3 (06:00→22:36)
[2021-05-26] MEDS: ACYCLOVIR IV SCH ×3 (06:00→22:36)
[2021-05-26 06:04] LABS: ALBUMIN 1.7 GM/DL (3.2-5.2); ALT/SGPT 301 U/L (12-78); BILIRUBIN,TOTAL 0.3 MG/DL (0.2-1.0); BLOOD UREA NITROGEN 23 MG/DL (7-18); CALCIUM LEVEL 7.3 MG/DL (8.8-10.2); CARBON DIOXIDE LEVEL 25 MEQ/L (21-32); CHLORIDE LEVEL 127 MEQ/L (98-107); CREATININE FOR GFR 0.85 MG/DL (0.70-1.30); GLOMERULAR FILTRATION RATE > 60.0 (>35); GLUCOSE, FASTING 112 MG/DL (70-100); MAGNESIUM LEVEL 2.2 MG/DL (1.8-2.4); POTASSIUM SERUM 3.6 MEQ/L (3.5-5.1); SODIUM LEVEL 155 MEQ/L (136-145); TOTAL PROTEIN 4.3 GM/DL (6.4-8.2)
[2021-05-26 06:31] LABS: LYMPHOCYTES 22 % (16-44); METAMYELOCYTES 1 % (0-0); MONOCYTES 3 % (0-5); MYELOCYTES 1 % (0-0); NEUTROPHILS 69 % (28-66); PLASMA CELL 1 % (0-0)
[2021-05-26 06:34] LABS: ANISOCYTOSIS 2+; OVALOCYTES 2+; TEAR DROP CELLS 1+
[2021-05-26 06:35] LABS: PLATELET ESTIMATE NORMAL (NORMAL); POIKILOCYTOSIS 1+
[2021-05-26 06:36] LABS: MICROCYTOSIS 1+
[2021-05-26 06:37] LABS: SCHISTOCYTES 2+
[2021-05-26] MEDS: ACETAMINOPHEN 650 MG SUPP PR PRN ×3 (08:13→17:49)
[2021-05-26] MEDS: D5W 1,000 ML IV SCH ×2 (08:14→22:35)
[2021-05-26] MEDS: TAMSULOSIN 0.4 MG CAP PO SCH (08:14)
[2021-05-26] MEDS: METOPROLOL SUCC *XL* 25MG TAB (TopROL *XL*) PO SCH (08:14)
[2021-05-26] MEDS: ADVAIR HFA 115/21MCG INHALER INH SCH ×2 (08:31→19:37)
[2021-05-26 10:05] LABS: HEMATOCRIT 25.3 % (42.0-52.0); HEMOGLOBIN 7.8 g/dl (13.5-17.5); MEAN CORPUSCULAR HEMOGLOBIN 24.1 pg (27.0-33.0); MEAN CORPUSCULAR HGB CONC 30.8 g/dl (32.0-36.5); MEAN CORPUSCULAR VOLUME 78.3 fl (80.0-96.0); PLATELET COUNT, AUTOMATED 216 10^3/uL (150-450); RED BLOOD COUNT 3.23 10^6/uL (4.30-6.10); WHITE BLOOD COUNT 4.1 10^3/uL (4.0-10.0)
[2021-05-26 10:26] LABS: BLOOD UREA NITROGEN 22 MG/DL (7-18); CALCIUM LEVEL 7.4 MG/DL (8.8-10.2); CARBON DIOXIDE LEVEL 24 MEQ/L (21-32); CHLORIDE LEVEL 128 MEQ/L (98-107); CREATININE FOR GFR 0.93 MG/DL (0.70-1.30); GLOMERULAR FILTRATION RATE > 60.0 (>35); GLUCOSE, FASTING 115 MG/DL (70-100); POTASSIUM SERUM 3.7 MEQ/L (3.5-5.1); SODIUM LEVEL 154 MEQ/L (136-145)
[2021-05-26] MEDS: HEPARIN SOD (PORCINE) 5000UNITS/ML 1ML VIAL/SYRINGE SC SCH ×2 (10:28→20:06)
[2021-05-26 10:38] LABS: ATYPICAL LYMPH 2 % (0-5); EOSINOPHILS 1 % (0-3); LYMPHOCYTES 21 % (16-44); METAMYELOCYTES 1 % (0-0); MONOCYTES 5 % (0-5); MYELOCYTES 3 % (0-0); NEUTROPHILS 57 % (28-66); PLASMA CELL 2 % (0-0)
[2021-05-26 10:40] LABS: OVALOCYTES 2+
[2021-05-26 10:41] LABS: ANISOCYTOSIS 2+; MICROCYTOSIS 1+; POIKILOCYTOSIS 1+
[2021-05-26 10:43] LABS: PLATELET ESTIMATE NORMAL (NORMAL); SCHISTOCYTES 1+; TEAR DROP CELLS 1+
[2021-05-26] MEDS ORDERED: MORPHINE 4 MG/ML 1ML VIAL/SYRINGE (J2270) IV PRN (10:55)
[2021-05-26] MEDS ORDERED: BISACODYL 10 MG SUPP PR PRN (11:00)
[2021-05-26] MEDS: MORPHINE 4 MG/ML 1ML VIAL/SYRINGE (J2270) IV PRN (15:17)
[2021-05-26 15:18] LABS: ABG HCO3 21.8 MEQ/L (22.0-26.0); ABG O2 SATURATION 96.6 % (95.0-99.0); ABG PARTIAL PRESSURE CO2 28.8 mmHg (35.0-45.0); ABG STANDARD HCO3 23.6 MEQ/L (22.0-26.0); ABG TOTAL CO2 22.7 MEQ/L (23.0-31.0); ABG pH (ARTERIAL) 7.497 UNITS (7.350-7.450)
[2021-05-26 15:20] LABS: BLOOD UREA NITROGEN 20 MG/DL (7-18); CALCIUM LEVEL 7.4 MG/DL (8.8-10.2); CARBON DIOXIDE LEVEL 23 MEQ/L (21-32); CHLORIDE LEVEL 126 MEQ/L (98-107); GLOMERULAR FILTRATION RATE > 60.0 (>35); GLUCOSE, FASTING 113 MG/DL (70-100); POTASSIUM SERUM 3.8 MEQ/L (3.5-5.1); SODIUM LEVEL 153 MEQ/L (136-145)
[2021-05-26 21:35] LABS: BLOOD UREA NITROGEN 21 MG/DL (7-18); CALCIUM LEVEL 7.6 MG/DL (8.8-10.2); CARBON DIOXIDE LEVEL 22 MEQ/L (21-32); CHLORIDE LEVEL 124 MEQ/L (98-107); CREATININE FOR GFR 0.96 MG/DL (0.70-1.30); GLOMERULAR FILTRATION RATE > 60.0 (>35); GLUCOSE, FASTING 106 MG/DL (70-100); POTASSIUM SERUM 3.9 MEQ/L (3.5-5.1); SODIUM LEVEL 150 MEQ/L (136-145)
[2021-05-27 06:00] VITALS: BP 165/68
[2021-05-27] MEDS: LEVOTHYROXINE 75MCG TABLET (0.075MG) PO SCH (06:00)
[2021-05-27 06:06] LABS: HEMATOCRIT 29.6 % (42.0-52.0); HEMOGLOBIN 9.5 g/dl (13.5-17.5); MEAN CORPUSCULAR HEMOGLOBIN 26.2 pg (27.0-33.0); MEAN CORPUSCULAR HGB CONC 32.1 g/dl (32.0-36.5); MEAN CORPUSCULAR VOLUME 81.8 fl (80.0-96.0); PLATELET COUNT, AUTOMATED 214 10^3/uL (150-450); RED BLOOD COUNT 3.62 10^6/uL (4.30-6.10); WHITE BLOOD COUNT 5.4 10^3/uL (4.0-10.0)
[2021-05-27] MEDS: NS IV SCH (06:29)
[2021-05-27] MEDS: ACYCLOVIR IV SCH (06:29)
[2021-05-27 06:40] LABS: ALBUMIN 1.7 GM/DL (3.2-5.2); ALT/SGPT 284 U/L (12-78); BILIRUBIN,TOTAL 0.6 MG/DL (0.2-1.0); BLOOD UREA NITROGEN 19 MG/DL (7-18); CALCIUM LEVEL 7.3 MG/DL (8.8-10.2); CARBON DIOXIDE LEVEL 23 MEQ/L (21-32); CHLORIDE LEVEL 124 MEQ/L (98-107); CREATININE FOR GFR 0.82 MG/DL (0.70-1.30); GLOMERULAR FILTRATION RATE > 60.0 (>35); GLUCOSE, FASTING 96 MG/DL (70-100); POTASSIUM SERUM 3.6 MEQ/L (3.5-5.1); SODIUM LEVEL 151 MEQ/L (136-145); TOTAL PROTEIN 4.7 GM/DL (6.4-8.2)
[2021-05-27 07:01] LABS: ATYPICAL LYMPH 6 % (0-5); BASOPHILS 1 % (0-1); EOSINOPHILS 2 % (0-3); LYMPHOCYTES 16 % (16-44); MONOCYTES 3 % (0-5); MYELOCYTES 2 % (0-0); NEUTROPHILS 66 % (28-66)
[2021-05-27 07:02] LABS: ANISOCYTOSIS 1+; PLATELET ESTIMATE NORMAL (NORMAL)
[2021-05-27 07:03] LABS: OVALOCYTES 2+
[2021-05-27 07:04] LABS: POIKILOCYTOSIS 1+; SCHISTOCYTES 1+
[2021-05-27] MEDS: ADVAIR HFA 115/21MCG INHALER INH SCH (08:00)
[2021-05-27] MEDS ORDERED: SIMETHICONE 40MG/0.6ML DROPS 30ML PO PRN (08:45)
[2021-05-27] MEDS ORDERED: LEVOTHYROXINE 100MCG (0.1MG) VIAL (POWDER FORM) IV SCH (09:00)
[2021-05-27] MEDS: D5W 1,000 ML IV SCH (09:36)
[2021-05-27] MEDS: HEPARIN SOD (PORCINE) 5000UNITS/ML 1ML VIAL/SYRINGE SC SCH (09:37)
[2021-05-27 11:00] LABS: BLOOD UREA NITROGEN 18 MG/DL (7-18); CALCIUM LEVEL 6.6 MG/DL (8.8-10.2); CARBON DIOXIDE LEVEL 23 MEQ/L (21-32); CHLORIDE LEVEL 116 MEQ/L (98-107); CREATININE FOR GFR 0.85 MG/DL (0.70-1.30); GLOMERULAR FILTRATION RATE > 60.0 (>35); GLUCOSE, FASTING 354 MG/DL (70-100); POTASSIUM SERUM 3.4 MEQ/L (3.5-5.1); SODIUM LEVEL 144 MEQ/L (136-145)
[2021-05-27] MEDS: MORPHINE 4 MG/ML 1ML VIAL/SYRINGE (J2270) IV PRN (11:18)
[2021-05-27] MEDS ORDERED: SCOPOLAMINE 1MG TRANSDERMAL PATCH TOP PRN (11:20)
[2021-05-27] MEDS ORDERED: LORazepam 2 MG/ML VIAL IV PRN (11:20)
[2021-05-27] MEDS ORDERED: MORPHINE 4 MG/ML 1ML VIAL/SYRINGE (J2270) IV PRN (11:20)
[2021-05-28] MEDS: ACETAMINOPHEN 650 MG SUPP PR PRN (10:39)
[2021-05-28] MEDS ORDERED: MORP1SOL5 PO (10:50)
[2021-05-28] MEDS ORDERED: HYOS125TA PO (10:50)
[2021-05-28] MEDS ORDERED: ATIV1TAB10 PO (10:50)
[2021-05-30 08:09] LABS: HSV-1 DNA Positive (Negative); HSV-2 DNA Negative (Negative)
== END 2021-05-28 13:12 | DRG 97 ==
LOC: EDBD 14:38 → M ED 14:38 → M ED INP 18:54 → ENRESERV 19:18 → M PCU 21:15 → M MSPAV 05-26 08:38
PROVIDERS: ADMIT Internal Medicine; ATTEND Internal Medicine
PROC: 009U3ZX Drainage of Spinal Canal, Percutaneous Approach, Diagnostic (ICD-10-PCS; 2021-05-24)
PROC: 02HV33Z Insertion of Infusion Device into Superior Vena Cava, Percutaneous Approach (ICD-10-PCS; principal; 2021-05-25 15:00)
DX: B00.4 Herpesviral encephalitis (principal); G93.41 Metabolic encephalopathy; I50.32 Chronic diastolic (congestive) heart failure; R53.83 Other fatigue; R74.01 Elevation of levels of liver transaminase levels; F03.90 Unspecified dementia, unspecified severity, without behavioral disturbance, psychotic disturbance, mood disturbance, and anxiety; I11.0 Hypertensive heart disease with heart failure; E03.9 Hypothyroidism, unspecified; J45.909 Unspecified asthma, uncomplicated; N40.0 Benign prostatic hyperplasia without lower urinary tract symptoms; F41.9 Anxiety disorder, unspecified; K21.9 Gastro-esophageal reflux disease without esophagitis; Z87.891 Personal history of nicotine dependence; Z66 Do not resuscitate; Z88.8 Allergy status to other drugs, medicaments and biological substances; Z79.899 Other long term (current) drug therapy; Z86.16 Personal history of COVID-19

== ENCOUNTER → 2021-05-22 | Outpatient (REF) | payer MEDICARE, MEDICAID ==
[~2021-05-22] MED LIST changes: +ACET1TAB55 PO; +ACETAMINOPHEN TAB 650MG DOSE (2X325MG) PO PRN; +DOCUSATE SODIUM 100MG CAPSULE PO SCH; +DULC10SU2 PR; +FLEEENE12 PR; +HEPARIN SOD (PORCINE) 5000UNITS/ML 1ML VIAL/SYRINGE SC SCH; +MAALOX 30 ML SUSP *UDC PO PRN; +MACR100C43 PO; +MILKSUS3 PO; +MOM 30ML SUSPENSION UDC PO PRN; +PIPERACILLIN/TAZOBACTAM SOD 3.375 GM in D5W MINI-BAG PLUS 50 ML IV SCH; +QUET50TA4 PO; +TAMS1CAP17 PO; +VANCOMYCIN HCL 1,000 MG in IV FLUID PLACE HOLDER 1 EA IV SCH
[2021-05-22 13:51] LABS: HEMOGLOBIN 9.7 g/dl (13.5-17.5); MEAN CORPUSCULAR HEMOGLOBIN 24.1 pg (27.0-33.0); MEAN CORPUSCULAR HGB CONC 31.3 g/dl (32.0-36.5); MEAN CORPUSCULAR VOLUME 77.1 fl (80.0-96.0); PLATELET COUNT, AUTOMATED 148 10^3/uL (150-450); RED BLOOD COUNT 4.02 10^6/uL (4.30-6.10); WHITE BLOOD COUNT 2.1 10^3/uL (4.0-10.0)
[2021-05-22 14:11] LABS: BLOOD UREA NITROGEN 35 MG/DL (7-18); CALCIUM LEVEL 7.4 MG/DL (8.8-10.2); CARBON DIOXIDE LEVEL 24 MEQ/L (21-32); CHLORIDE LEVEL 105 MEQ/L (98-107); CREATININE FOR GFR 1.11 MG/DL (0.70-1.30); GLOMERULAR FILTRATION RATE > 60.0 (>35); GLUCOSE, FASTING 110 MG/DL (70-100); POTASSIUM SERUM 4.2 MEQ/L (3.5-5.1); SODIUM LEVEL 135 MEQ/L (136-145)
== END ==
LOC: SKLAB8 13:09
PROVIDERS: ATTEND Neuromusculoskeletal Medicine & OMM
DX: R53.83 Other fatigue (principal)